=== PATIENT | male | born 1940 | race Caucasian/White ===

== ENCOUNTER 2023-10-29 13:05 | Inpatient (IN) | payer MEDICARE ==
[~2023-10-29] VITALS: Ht 175.3 cm; Wt 61.7 kg
[2023-10-29] MEDS ORDERED: ONDANSETRON HCL/PF 4 MG/2 ML VIAL ONE (13:27)
[2023-10-29 13:39] LABS: BASOPHILS % (AUTO) 0.3 % (0.0-2.0); EOSINOPHILS # (AUTO) 0.2 K/uL (0.0-0.7); EOSINOPHILS % (AUTO) 1.7 % (0.0-6.0); HEMATOCRIT 41 % (39-51); HEMOGLOBIN 13.6 g/dL (13.5-17.5); LYMPHOCYTES % (AUTO) 8.2 % (20.0-44.0); MEAN CORPUSCULAR HEMOGLOBIN 30 PG (26.0-33.0); MEAN CORPUSCULAR HGB CONC 33 g/dl (31.0-36.0); MEAN CORPUSCULAR VOLUME 90 fL (80-96); MONOCYTES # (AUTO) 0.5 K/uL (0.1-1.30); MONOCYTES % (AUTO) 4.2 % (2.0-12.0); NEUTROPHILS # (AUTO) 10.3 K/uL (1.8-8.9); NEUTROPHILS % (AUTO) 85.6 % (43.0-81.0); PLATELET COUNT (AUTO) 213 K/uL (150-450); RED BLOOD CELL COUNT(AUTO) 4.53 MIL/uL (4.5-6.0); RED CELL DISTRIBUTION WIDTH 14.7 % (11.5-15.0)
[2023-10-29] MEDS: IV NS 0.9% 1,000 ML BAG IV ONE (13:42)
[2023-10-29] MEDS: ONDANSETRON HCL/PF 4 MG/2 ML VIAL IVP ONE (13:43)
[2023-10-29] MEDS ORDERED: ASCO-340 PO (13:44)
[2023-10-29] MEDS ORDERED: MAGN400O6 PO (13:44)
[2023-10-29] MEDS ORDERED: MELA3TAB41 PO (13:44)
[2023-10-29] MEDS ORDERED: SODIUM CHLORIDE IV (13:44)
[2023-10-29] MEDS ORDERED: CALC-15 PO (13:44)
[2023-10-29] MEDS ORDERED: FERR325T28 PO (13:44)
[2023-10-29] MEDS ORDERED: CHOL200059 PO (13:44)
[2023-10-29] MEDS ORDERED: NETA2.5D3 EACHEYE (13:44)
[2023-10-29] MEDS ORDERED: TIMO5DRO35 EACHEYE (13:44)
[2023-10-29] MEDS ORDERED: DORZ10DR10 EACHEYE (13:44)
[2023-10-29] MEDS ORDERED: ACET-2605 PO (13:44)
[2023-10-29] MEDS ORDERED: PILO15DR7 EACHEYE (13:44)
[2023-10-29] MEDS ORDERED: ALLA266C2 TP (13:44)
[2023-10-29] MEDS ORDERED: ACET-868 PO (13:44)
[2023-10-29] MEDS ORDERED: NA P133E RC (13:44)
[2023-10-29] MEDS ORDERED: PANT40TA2 PO (13:44)
[2023-10-29] MEDS ORDERED: ASPI-1169 PO (13:44)
[2023-10-29] MEDS ORDERED: SULF1TAB48 PO (13:44)
[2023-10-29] MEDS ORDERED: BISA10SU11 RC (13:44)
[2023-10-29] MEDS ORDERED: BRIM5DRO11 EACHEYE (13:44)
[2023-10-29] MEDS ORDERED: CLOP75TA15 PO (13:44)
[2023-10-29] MEDS ORDERED: HYDR28.32 TP (13:44)
[2023-10-29] MEDS ORDERED: MULT-213 PO (13:44)
[2023-10-29 13:50] LABS: CALCIUM, SERUM 8.5 mg/dL (8.5-10.1); CARBON DIOXIDE 26 mmol/L (21-32); CHLORIDE 98 mmol/L (98-107); CREATININE 0.7 mg/dL (0.6-1.3); GLUCOSE 97 mg/dL (74-106); SODIUM SERUM 130 mmol/L (136-145); UREA NITROGEN, BLOOD 15 mg/dL (7-18)
[2023-10-29 13:56] LABS: ALANINE AMINOTRANSFERASE 31 U/L (12-78); ALBUMIN 3.2 g/dL (3.4-5.0); ALKALINE PHOSPHATASE 91 U/L (46-116); ASPARTATE AMINOTRANSFERASE 35 U/L (15-37); BILIRUBIN,DIRECT 0.2 mg/dL (0.0-0.2); BILIRUBIN,TOTAL 0.7 mg/dL (0.2-1.0); LIPASE 46 U/L (16-77)
[2023-10-29] MEDS ORDERED: IOHEXOL-300 100 ML VIAL IV ONE (14:34)
[2023-10-29] MEDS ORDERED: IV NS 0.9% 250 ML IV ONE (14:35)
[2023-10-29] MEDS ORDERED: CT SWABBABLE VALVE TRANS SET 1 EA INFUS.SET MC ONE (14:35)
[2023-10-29] MEDS: CEFEPIME 1 GM in IV D5W 50 ML IV ONE (15:15)
[2023-10-29] MEDS: VANCOMYCIN 1 GM in IV D5W 250 ML IV ONE (15:45)
[2023-10-29] MEDS ORDERED: ZOLPIDEM TARTRATE 5 MG TABLET PO PRN (16:00)
[2023-10-29] MEDS ORDERED: MAG HYDROX/AL HYDROX/SIMETH 30 ML UDC PO PRN (16:00)
[2023-10-29] MEDS ORDERED: HYDROCODONE/APAP 5/325MG TABLET PO PRN (16:00)
[2023-10-29] MEDS ORDERED: ACETAMINOPHEN 325 MG TABLET PO PRN (16:00)
[2023-10-29] MEDS ORDERED: Z GUARD REMEDY 4 OZ OINT TP PRN (16:00)
[2023-10-29] MEDS: PIPERACILLIN /TAZOBACTAM 3.375 G in IV D5W 100 ML IV SCH (17:00)
[2023-10-29 17:32] LABS: APPEARANCE,URINE Clear (CLEAR); BILIRUBIN,URINE Negative (NEGATIVE); BLOOD, URINE Large Ery/uL (NEGATIVE); COLOR,URINE LIGHT YELLOW (YELLOW); KETONES,URINE Negative (NEGATIVE); LEUKOCYTE ESTERASE ,URINE Moderate (NEGATIVE); NITRITE, URINE Negative (NEGATIVE); PROTEIN,URINE Negative (NEGATIVE); UGLUCOSE Negative (NEGATIVE); UROBILINOGEN,URINE 0.2 EU/dL (0.2)
[2023-10-29 17:49] LABS: ADD URINE CULTURE YES; BACTERIA,URINE Few /HPF (None Seen); SQUAMOUS EPITHELIAL CELL,UR Few /HPF (None Seen); WBC,URINE 51-80 /HPF (0-3)
[2023-10-29 22:45] VITALS: BP 101/65; TEMP 99; O2SAT 96
[2023-10-30] MEDS ORDERED: PIPERACI/TAZO 3.375GM/D5W 50ML PB IV ONE (00:02)
[2023-10-30] MEDS: IV 1/2NS 1000 ML 1,000 ML IV PRN (00:55)
[2023-10-30] MEDS: ENOXAPARIN SODIUM 40 MG/0.4 ML DISP.SYRIN SQ SCH (00:59)
[2023-10-30 04:00] VITALS: BP 105/69; TEMP 97.7; O2SAT 95
[2023-10-30 07:03] LABS: BASOPHILS % (AUTO) 0.2 % (0.0-2.0); EOSINOPHILS % (AUTO) 0.2 % (0.0-6.0); HEMATOCRIT 40 % (39-51); HEMOGLOBIN 13.2 g/dL (13.5-17.5); LYMPHOCYTES # (AUTO) 2.1 K/uL (0.8-4.8); LYMPHOCYTES % (AUTO) 11.1 % (20.0-44.0); MEAN CORPUSCULAR HEMOGLOBIN 31 PG (26.0-33.0); MEAN CORPUSCULAR HGB CONC 33 g/dl (31.0-36.0); MEAN CORPUSCULAR VOLUME 92 fL (80-96); MONOCYTES # (AUTO) 0.8 K/uL (0.1-1.30); NEUTROPHILS # (AUTO) 15.9 K/uL (1.8-8.9); NEUTROPHILS % (AUTO) 84.5 % (43.0-81.0); PLATELET COUNT (AUTO) 173 K/uL (150-450); RED BLOOD CELL COUNT(AUTO) 4.32 MIL/uL (4.5-6.0); WHITE BLOOD COUNT (AUTO) 18.9 K/uL (4.3-11.0)
[2023-10-30 07:09] LABS: CREATININE 0.7 mg/dL (0.6-1.3); MAGNESIUM 1.8 mg/dL (1.8-2.4); PHOSPHORUS 2.7 mg/dL (2.5-4.9); POTASSIUM 3.8 mmol/L (3.5-5.1)
[2023-10-30] MEDS: PANTOPRAZOLE 40 MG TABLET.DR PO SCH (07:44)
[2023-10-30] MEDS: ONDANSETRON HCL/PF 4 MG/2 ML VIAL IVP PRN (07:44)
[2023-10-30 08:20] VITALS: BP 95/61; TEMP 98.6; O2SAT 97
[2023-10-30] MEDS: CLOTRIMAZOLE/BETAMETASONE DIPROPIONATE 15 GM TUBE TP SCH (09:51)
[2023-10-30] MEDS: GUAIFENESIN LA 600 MG TABLET.SA PO SCH (09:51)
[2023-10-30] MEDS: methylPREDNISolone SOD SUCC 125 MG/2ML VIAL IV SCH (13:20)
[2023-10-30] MEDS: IV D5 LR 1,000 ML IV PRN (13:21)
[2023-10-30 15:47] VITALS: BP 95/66; TEMP 97.7; O2SAT 94
[2023-10-30] MEDS ORDERED: ENOXAPARIN SODIUM 80 MG/0.8 ML DISP.SYRIN SQ SCH ×3 (17:30→17:32)
[2023-10-30] MEDS ORDERED: ENOXAPARIN SODIUM 60 MG/0.6 ML DISP.SYRIN SQ SCH (17:33)
[2023-10-30] MEDS: ENOXAPARIN SODIUM 60 MG/0.6 ML DISP.SYRIN SQ ONE (18:24)
[2023-10-30 20:00] VITALS: BP 96/62; TEMP 97.3; O2SAT 95
[2023-10-31] VITALS (7 sets, daily range): BP systolic 93–140; BP diastolic 54–76; TEMP 97.3–97.9; O2SAT 93–100
[2023-10-31 06:57] LABS: HEMATOCRIT 35 % (39-51); HEMOGLOBIN 12.1 g/dL (13.5-17.5); LYMPHOCYTES # (AUTO) 1.2 K/uL (0.8-4.8); LYMPHOCYTES % (AUTO) 11.9 % (20.0-44.0); MEAN CORPUSCULAR HEMOGLOBIN 31 PG (26.0-33.0); MEAN CORPUSCULAR HGB CONC 35 g/dl (31.0-36.0); MEAN CORPUSCULAR VOLUME 90 fL (80-96); MONOCYTES # (AUTO) 0.3 K/uL (0.1-1.30); MONOCYTES % (AUTO) 2.6 % (2.0-12.0); NEUTROPHILS # (AUTO) 8.5 K/uL (1.8-8.9); NEUTROPHILS % (AUTO) 85.5 % (43.0-81.0); PLATELET COUNT (AUTO) 150 K/uL (150-450); RED BLOOD CELL COUNT(AUTO) 3.88 MIL/uL (4.5-6.0); RED CELL DISTRIBUTION WIDTH 14.7 % (11.5-15.0); WHITE BLOOD COUNT (AUTO) 9.9 K/uL (4.3-11.0)
[2023-10-31 07:11] LABS: ALBUMIN 2.7 g/dL (3.4-5.0); BILIRUBIN,TOTAL 0.6 mg/dL (0.2-1.0); CALCIUM, SERUM 8.8 mg/dL (8.5-10.1); CREATININE 0.7 mg/dL (0.6-1.3); MAGNESIUM 1.8 mg/dL (1.8-2.4); PHOSPHORUS 2.5 mg/dL (2.5-4.9); POTASSIUM 3.7 mmol/L (3.5-5.1); TOTAL PROTEIN, SERUM 6.6 g/dL (6.4-8.2)
[2023-10-31 07:17] LABS: THYROID STIMULATING HORMONE 0.623 uIU/mL (0.358-3.74); URIC ACID 3.5 mg/dL (2.6-7.2)
[2023-10-31] MEDS: ENOXAPARIN SODIUM 60 MG/0.6 ML DISP.SYRIN SQ SCH (09:00)
[2023-10-31] MEDS: METOPROLOL TARTRATE 25 MG TABLET PO SCH (20:03)
[2023-10-31] MEDS: MINERAL OIL/PETROL OINT 396 GM JAR TP SCH (20:15)
[2023-11-01] VITALS (7 sets, daily range): BP systolic 102–117; BP diastolic 57–73; TEMP 97.3–97.9; O2SAT 95–97
[2023-11-01 06:44] LABS: BASOPHILS # (AUTO) 0.1 K/uL (0.0-0.2); BASOPHILS % (AUTO) 0.7 % (0.0-2.0); EOSINOPHILS % (AUTO) 0.4 % (0.0-6.0); HEMATOCRIT 35 % (39-51); HEMOGLOBIN 11.8 g/dL (13.5-17.5); LYMPHOCYTES # (AUTO) 0.6 K/uL (0.8-4.8); LYMPHOCYTES % (AUTO) 6.6 % (20.0-44.0); MEAN CORPUSCULAR HEMOGLOBIN 31 PG (26.0-33.0); MEAN CORPUSCULAR HGB CONC 34 g/dl (31.0-36.0); MEAN CORPUSCULAR VOLUME 91 fL (80-96); MONOCYTES # (AUTO) 0.3 K/uL (0.1-1.30); NEUTROPHILS # (AUTO) 8.5 K/uL (1.8-8.9); NEUTROPHILS % (AUTO) 89.3 % (43.0-81.0); PLATELET COUNT (AUTO) 183 K/uL (150-450); RED BLOOD CELL COUNT(AUTO) 3.88 MIL/uL (4.5-6.0); RED CELL DISTRIBUTION WIDTH 14.2 % (11.5-15.0); WHITE BLOOD COUNT (AUTO) 9.5 K/uL (4.3-11.0)
[2023-11-01 07:19] LABS: ALBUMIN 2.7 g/dL (3.4-5.0); BILIRUBIN,TOTAL 0.5 mg/dL (0.2-1.0); CALCIUM, SERUM 8.8 mg/dL (8.5-10.1); CREATININE 0.6 mg/dL (0.6-1.3); PHOSPHORUS 2.4 mg/dL (2.5-4.9); POTASSIUM 3.5 mmol/L (3.5-5.1); TOTAL PROTEIN, SERUM 6.3 g/dL (6.4-8.2)
[2023-11-01 09:37] LABS: BAND % (MANUAL) 3 % (0.0-5.0); LYMPHOCYTES % (MANUAL) 5 % (16-48); METAMYELOCYTES % 2 % (0-0); MONOCYTES % (MANUAL) 2 % (0-11.0); MYELOCYTES % 1 % (0-0); NEUTROPHILS % (MANUAL) 87 (42-76); PLATELET ESTIMATE ADEQUATE
[2023-11-01] MEDS: Sodium Phosphate 15 MMOL in IV NS 0.9% 245 ML IV SCH (11:52)
[2023-11-01] MEDS ORDERED: IOHEXOL-300 100 ML VIAL IV ONE (13:54)
[2023-11-01] MEDS ORDERED: CT SWABBABLE VALVE TRANS SET 1 EA INFUS.SET MC ONE (13:54)
[2023-11-01] MEDS ORDERED: IV NS 0.9% 250 ML IV ONE (13:54)
[2023-11-01] MEDS ORDERED: GADOTERATE MEGLUMINE 10 MMOL/20 ML VIAL IV ONE (15:28)
[2023-11-01] MEDS: DORZOLAMIDE OPTH 2% 10 ML BOTTLE EACHEYE SCH (16:38)
[2023-11-01] MEDS: BRIMONIDINE TARTRATE OPHT SOLN 5 ML BOTTLE EACHEYE SCH (16:45)
[2023-11-01] MEDS: PILOCARPINE 2% OPTH DROP 15 ML BOTTLE EACHEYE SCH (16:54)
[2023-11-01] MEDS: TIMOLOL 0.5% SOLN OPHTH 5 ML BOTTLE EACHEYE SCH (16:55)
[2023-11-01 18:20] LABS: THYROID STIMULATING HORMONE 1.024 uIU/mL (0.358-3.74)
[2023-11-01 19:18] LABS: FREE PSA 0.12 ng/mL (0.00-45); PROSTATE SPECIFIC ANTIGEN SCR 1.57 ng/mL (0.00-4.00)
[2023-11-01] MEDS ORDERED: Medication Not On Formulary EA (Netarsudil Mesylat/Latanoprost (Rocklatan 0.02%-0.005% E EACHEYE SCH (22:00)
[2023-11-01] MEDS ORDERED: GUAIFENESIN/D-METHORPHAN HB 5 ML UDC PO PRN (23:30)
[2023-11-02] VITALS (7 sets, daily range): BP systolic 118–133; BP diastolic 74–99; TEMP 97.7–98.4; O2SAT 94–96
[2023-11-02 07:12] LABS: HEMATOCRIT 37 % (39-51); HEMOGLOBIN 12.6 g/dL (13.5-17.5); LYMPHOCYTES # (AUTO) 1.1 K/uL (0.8-4.8); LYMPHOCYTES % (AUTO) 8.2 % (20.0-44.0); MEAN CORPUSCULAR HEMOGLOBIN 31 PG (26.0-33.0); MEAN CORPUSCULAR HGB CONC 34 g/dl (31.0-36.0); MEAN CORPUSCULAR VOLUME 90 fL (80-96); MONOCYTES # (AUTO) 0.6 K/uL (0.1-1.30); MONOCYTES % (AUTO) 4.3 % (2.0-12.0); NEUTROPHILS # (AUTO) 12.3 K/uL (1.8-8.9); NEUTROPHILS % (AUTO) 87.5 % (43.0-81.0); PLATELET COUNT (AUTO) 230 K/uL (150-450); RED CELL DISTRIBUTION WIDTH 14.2 % (11.5-15.0); WHITE BLOOD COUNT (AUTO) 14.1 K/uL (4.3-11.0)
[2023-11-02 07:43] LABS: ALANINE AMINOTRANSFERASE 25 U/L (12-78); ALBUMIN 2.7 g/dL (3.4-5.0); ALKALINE PHOSPHATASE 74 U/L (46-116); ASPARTATE AMINOTRANSFERASE 24 U/L (15-37); BILIRUBIN,TOTAL 0.5 mg/dL (0.2-1.0); CALCIUM, SERUM 8.8 mg/dL (8.5-10.1); CARBON DIOXIDE 30 mmol/L (21-32); CHLORIDE 101 mmol/L (98-107); CREATININE 0.7 mg/dL (0.6-1.3); GLUCOSE 138 mg/dL (74-106); MAGNESIUM 1.9 mg/dL (1.8-2.4); PHOSPHORUS 2.2 mg/dL (2.5-4.9); POTASSIUM 2.9 mmol/L (3.5-5.1); SODIUM SERUM 138 mmol/L (136-145); TOTAL PROTEIN, SERUM 6.7 g/dL (6.4-8.2); UREA NITROGEN, BLOOD 17 mg/dL (7-18)
[2023-11-02 08:08] LABS: IMMUNOGLOBULIN A, SERUM 492 mg/dL (61-437); IMMUNOGLOBULIN G, SERUM 836 mg/dL (603-1613); IMMUNOGLOBULIN M, SERUM 29 mg/dL (15-143)
[2023-11-02] MEDS ORDERED: OLANZAPINE 10 MG VIAL IM ONE (09:31)
[2023-11-02 10:07] LABS: FOLIC ACID 7.7 ng/mL (>3.0)
[2023-11-02] MEDS: K PHOS NEUTRAL 250 MG TABLET PO ONE (10:20)
[2023-11-02] MEDS: POTASSIUM CHLORIDE 20 MEQ TAB.PRT.SR PO ONE (10:21)
[2023-11-02] MEDS: MAGNESIUM HYDROXIDE 30 ML UDC PO PRN (21:58)
[2023-11-03] VITALS: BP 131/99; TEMP 98.3; O2SAT 97
[2023-11-03 04:00] VITALS: BP 143/87; TEMP 98.2; O2SAT 95
[2023-11-03 07:00] VITALS: BP 135/78; TEMP 97.7; O2SAT 92
[2023-11-03 07:12] LABS: HEMATOCRIT 41 % (39-51); HEMOGLOBIN 13.8 g/dL (13.5-17.5); LYMPHOCYTES # (AUTO) 1.3 K/uL (0.8-4.8); LYMPHOCYTES % (AUTO) 15.4 % (20.0-44.0); MEAN CORPUSCULAR HEMOGLOBIN 31 PG (26.0-33.0); MEAN CORPUSCULAR HGB CONC 34 g/dl (31.0-36.0); MEAN CORPUSCULAR VOLUME 92 fL (80-96); MONOCYTES # (AUTO) 0.8 K/uL (0.1-1.30); MONOCYTES % (AUTO) 9.7 % (2.0-12.0); NEUTROPHILS # (AUTO) 6.4 K/uL (1.8-8.9); NEUTROPHILS % (AUTO) 74.9 % (43.0-81.0); PLATELET COUNT (AUTO) 237 K/uL (150-450); RED BLOOD CELL COUNT(AUTO) 4.43 MIL/uL (4.5-6.0); WHITE BLOOD COUNT (AUTO) 8.6 K/uL (4.3-11.0)
[2023-11-03 07:31] LABS: CALCIUM, SERUM 8.8 mg/dL (8.5-10.1); CARBON DIOXIDE 28 mmol/L (21-32); CREATININE 0.7 mg/dL (0.6-1.3); GLUCOSE 145 mg/dL (74-106); MAGNESIUM 1.9 mg/dL (1.8-2.4); PHOSPHORUS 2.3 mg/dL (2.5-4.9); UREA NITROGEN, BLOOD 14 mg/dL (7-18)
[2023-11-03 08:06] LABS: CHLORIDE 100 mmol/L (98-107); SODIUM SERUM 138 mmol/L (136-145)
[2023-11-03] MEDS: SPIRONOLACTONE 25 MG TABLET PO SCH (08:27)
[2023-11-03] MEDS: POTASSIUM CHLORIDE 20 MEQ TAB.PRT.SR PO SCH (10:24)
[2023-11-03 11:10] LABS: FREE KAPPA LT CHAINS SERUM 19.7 mg/L (3.3-19.4); FREE LAMBDA LT CHAIN SERUM 18.8 mg/L (5.7-26.3); KAPPA/LAMBDA RATIO SERUM 1.05 (0.26-1.65)
[2023-11-03] MEDS: K PHOS NEUTRAL 250 MG TABLET PO ONE (15:38)
[2023-11-03 16:00] VITALS: BP 111/70; TEMP 97.3; O2SAT 98
[2023-11-03 20:00] VITALS: BP 105/70; TEMP 97; O2SAT 97
[2023-11-04] VITALS: BP 130/88; TEMP 97.9; O2SAT 96
[2023-11-04 02:10] LABS: AFP, TUMOR MARKER <1.8 ng/mL (0.0-6.4); CARBOHYDRATE AG 19-9 21 U/mL (0-35)
[2023-11-04 04:00] VITALS: BP 137/79; TEMP 98; O2SAT 98
[2023-11-04 06:09] LABS: *SPE A/G RATIO 0.9 (0.7-1.7); *SPE ALBUMIN 2.8 g/dL (2.9-4.4); *SPE ALPHA-1-GLOBULIN 0.4 g/dL (0.0-0.4); *SPE ALPHA-2-GLOBULIN 0.9 g/dL (0.4-1.0); *SPE BETA GLOBULIN 1.1 g/dL (0.7-1.3); *SPE GLOBULIN, TOTAL 3.2 g/dL (2.2-3.9); *SPE M-SPIKE Not Observed g/dL (Not Observed)
[2023-11-04 07:33] LABS: CALCIUM, SERUM 8.5 mg/dL (8.5-10.1); CARBON DIOXIDE 31 mmol/L (21-32); CHLORIDE 99 mmol/L (98-107); CREATININE 0.5 mg/dL (0.6-1.3); GLUCOSE 158 mg/dL (74-106); POTASSIUM 3.2 mmol/L (3.5-5.1); SODIUM SERUM 136 mmol/L (136-145); UREA NITROGEN, BLOOD 16 mg/dL (7-18)
[2023-11-04 08:00] VITALS: BP 139/73; TEMP 97.9; O2SAT 93
[2023-11-04] MEDS: ENSURE ENLIVE CHOC 237 ML CAN PO SCH (08:14)
[2023-11-04] MEDS: POTASSIUM CL. PREMIX PERIPHER. 50 ML IV SCH (08:54)
[2023-11-04] MEDS: POTASSIUM CHLORIDE 20 MEQ TAB.PRT.SR PO ONE (08:56)
[2023-11-04] MEDS ORDERED: SPIR25TA6 PO (11:39)
[2023-11-04] MEDS ORDERED: METO25TA20 PO (11:39)
[2023-11-04] MEDS ORDERED: LEVO500T90 PO (11:39)
[2023-11-04] MEDS ORDERED: LOSA25TA27 PO (11:39)
[2023-11-04] MEDS: LOSARTAN POTASSIUM 25 MG TABLET PO SCH (12:31)
[2023-11-04] MEDS: LACTULOSE 10 G/15 ML UDC (PYXIS) PO ONE (14:58)
[2023-11-04 16:11] VITALS: BP 86/50; TEMP 97.9; O2SAT 96
[2023-11-04 16:45] VITALS: BP 86/50
[2023-11-04] MEDS: MIDODRINE HCL (5MG) 5 MG TABLET PO ONE (16:45)
[2023-11-05] MEDS ORDERED: predniSONE 20 MG TABLET PO SCH (09:00)
== END 2023-11-04 20:20 | DRG 193 ==
LOC: ER 13:07 → TELE 21:48
PROVIDERS: ATTEND Nurse Practitioner Acute Care
DX: J15.9 Unspecified bacterial pneumonia (principal); I21.4 Non-ST elevation (NSTEMI) myocardial infarction; J96.01 Acute respiratory failure with hypoxia; E87.1 Hypo-osmolality and hyponatremia; I50.22 Chronic systolic (congestive) heart failure; N39.0 Urinary tract infection, site not specified; J98.11 Atelectasis; I25.10 Atherosclerotic heart disease of native coronary artery without angina pectoris; H40.9 Unspecified glaucoma; D64.9 Anemia, unspecified; Z79.02 Long term (current) use of antithrombotics/antiplatelets; Z79.82 Long term (current) use of aspirin; Z79.899 Other long term (current) drug therapy; Z20.822 Contact with and (suspected) exposure to COVID-19; Z95.1 Presence of aortocoronary bypass graft; I11.0 Hypertensive heart disease with heart failure; I73.9 Peripheral vascular disease, unspecified; L85.3 Xerosis cutis; Y95 Nosocomial condition; Z96.643 Presence of artificial hip joint, bilateral; I35.0 Nonrheumatic aortic (valve) stenosis
CPT/HCPCS: 36415; 71045-TC; 71260-TC; 74183; 80048-TC; 80053-TC; 80076-TC; 81001; 82105; 82378; 82607-TC; 82728-TC; 82784; 83540-TC; 83605-TC; 83615-TC; 83690-TC; 83735-TC; 83880; 83935-TC; 84100-TC; 84153-TC; 84154-TC; 84155; 84165; 84300-TC; 84443-TC; 84484-TC; 84550-TC; 84702-TC; 85025-TC; 86301; 86334; 87040-TC; 87086-TC; 93307-TC; 97110-TC; 97116-TC; 97530-TC; A4223; A9563; A9575; G0378; J0692; J1650; J2405; J2543; J2930; J3370; J3480; J3490; J7030; J7050; J7060; Q9967

== ENCOUNTER 2023-12-29 19:05 | Inpatient (IN) | payer MEDICARE, OTHER ==
[~2023-12-29] VITALS: Ht 172.7 cm; Wt 41.7 kg
[~2023-12-29 19:05] MED LIST: ACET-2605 PO; ACET-868 PO; ALLA266C2 TP; ASCO-340 PO; ASPI-1169 PO; BISA10SU11 RC; BRIM5DRO11 EACHEYE; CALC-15 PO; CHOL200059 PO; DORZ10DR10 EACHEYE; FERR325T28 PO; HYDR28.32 TP; LEVO500T90 PO; MAGN400O6 PO; MELA3TAB41 PO; METO25TA20 PO; MULT-213 PO; NA P133E RC; NETA2.5D3 EACHEYE; PANT40TA2 PO; PILO15DR7 EACHEYE; SODIUM CHLORIDE IV; SPIR25TA6 PO; SULF1TAB48 PO; TIMO5DRO35 EACHEYE
[2023-12-29 21:51] LABS: BASOPHILS % (AUTO) 0.4 % (0.0-2.0); EOSINOPHILS # (AUTO) 0.4 K/uL (0.0-0.7); EOSINOPHILS % (AUTO) 5.6 % (0.0-6.0); HEMATOCRIT 36 % (39-51); HEMOGLOBIN 12.4 g/dL (13.5-17.5); LYMPHOCYTES # (AUTO) 1.6 K/uL (0.8-4.8); LYMPHOCYTES % (AUTO) 20.6 % (20.0-44.0); MEAN CORPUSCULAR HEMOGLOBIN 30 PG (26.0-33.0); MEAN CORPUSCULAR HGB CONC 34 g/dl (31.0-36.0); MEAN CORPUSCULAR VOLUME 89 fL (80-96); MONOCYTES # (AUTO) 0.7 K/uL (0.1-1.30); NEUTROPHILS # (AUTO) 5.1 K/uL (1.8-8.9); NEUTROPHILS % (AUTO) 64.4 % (43.0-81.0); PLATELET COUNT (AUTO) 333 K/uL (150-450); RED BLOOD CELL COUNT(AUTO) 4.08 MIL/uL (4.5-6.0); RED CELL DISTRIBUTION WIDTH 14.9 % (11.5-15.0)
[2023-12-29 21:58] LABS: CALCIUM, SERUM 9.5 mg/dL (8.5-10.1); CARBON DIOXIDE 27 mmol/L (21-32); CHLORIDE 101 mmol/L (98-107); CREATININE 0.8 mg/dL (0.6-1.3); GLUCOSE 108 mg/dL (74-106); POTASSIUM 3.9 mmol/L (3.5-5.1); SODIUM SERUM 134 mmol/L (136-145); UREA NITROGEN, BLOOD 20 mg/dL (7-18)
[2023-12-29] MEDS ORDERED: FINASTERIDE (5 MG) 5 MG TABLET PO SCH (22:30)
[2023-12-29] MEDS: TAMSULOSIN 0.4 MG CAP.SR.24H PO ONE (22:30)
[2023-12-29] MEDS ORDERED: TAMSULOSIN 0.4 MG CAP.SR.24H ONE (22:33)
[2023-12-29] MEDS ORDERED: FINA5TAB11 PO (22:44)
[2023-12-29] MEDS ORDERED: TAMS-12 PO (22:44)
[2023-12-30] MEDS ORDERED: LIDOCAINE 2% JEL UROJET 10 ML MM ONE (01:44)
[2023-12-30] MEDS ORDERED: LIDOCAINE HCL/PF 1% 30 ML SDV ONE (02:00)
[2023-12-30] MEDS: CEFTRIAXONE 1 G in IV D5W 50 ML IV ONE (03:10)
[2023-12-30] MEDS ORDERED: CEFTRIAXONE 1GM BAG (ER ONLY) 50 ML IV ONE (03:13)
[2023-12-30] MEDS ORDERED: ONDANSETRON HCL/PF 4 MG/2 ML VIAL IVP PRN (03:30)
[2023-12-30] MEDS ORDERED: ACETAMINOPHEN 325 MG TABLET PO PRN (03:30)
[2023-12-30] MEDS ORDERED: MAG HYDROX/AL HYDROX/SIMETH 30 ML UDC PO PRN (03:30)
[2023-12-30] MEDS ORDERED: ZOLPIDEM TARTRATE 5 MG TABLET PO PRN (03:30)
[2023-12-30 04:18] LABS: BILIRUBIN,URINE NEGATIVE (NEGATIVE); BLOOD, URINE 3+ Ery/uL (NEGATIVE); COLOR,URINE YELLOW (YELLOW); KETONES,URINE NEGATIVE (NEGATIVE); LEUKOCYTE ESTERASE ,URINE 3+ (NEGATIVE); NITRITE, URINE NEGATIVE (NEGATIVE); PROTEIN,URINE 2+ mg/dl (NEGATIVE); UGLUCOSE NEGATIVE (NEGATIVE); UROBILINOGEN,URINE 0.2 EU/dL (0.2)
[2023-12-30 04:19] LABS: APPEARANCE,URINE TURBID (CLEAR)
[2023-12-30 04:23] LABS: ADD URINE CULTURE YES; BACTERIA,URINE Many /HPF (None Seen); RBC,URINE TOO NUMEROUS TO COUN /HPF (0-2); WBC,URINE TOO NUMEROUS TO COUN /HPF (0-3)
[2023-12-30 04:24] LABS: SQUAMOUS EPITHELIAL CELL,UR None Seen /HPF (None Seen)
[2023-12-30 05:15] VITALS: BP 132/89; TEMP 97.8; O2SAT 99
[2023-12-30] MEDS: IV NS 0.9% 1,000 ML IV SCH (05:23)
[2023-12-30 06:31] LABS: BASOPHILS # (AUTO) 0.1 K/uL (0.0-0.2); BASOPHILS % (AUTO) 0.5 % (0.0-2.0); EOSINOPHILS # (AUTO) 0.3 K/uL (0.0-0.7); EOSINOPHILS % (AUTO) 2.9 % (0.0-6.0); HEMATOCRIT 39 % (39-51); HEMOGLOBIN 13.3 g/dL (13.5-17.5); LYMPHOCYTES # (AUTO) 1.9 K/uL (0.8-4.8); LYMPHOCYTES % (AUTO) 15.6 % (20.0-44.0); MEAN CORPUSCULAR HEMOGLOBIN 31 PG (26.0-33.0); MEAN CORPUSCULAR HGB CONC 34 g/dl (31.0-36.0); MEAN CORPUSCULAR VOLUME 91 fL (80-96); MONOCYTES # (AUTO) 0.7 K/uL (0.1-1.30); MONOCYTES % (AUTO) 5.7 % (2.0-12.0); NEUTROPHILS # (AUTO) 8.9 K/uL (1.8-8.9); NEUTROPHILS % (AUTO) 75.3 % (43.0-81.0); PLATELET COUNT (AUTO) 346 K/uL (150-450); RED BLOOD CELL COUNT(AUTO) 4.32 MIL/uL (4.5-6.0); RED CELL DISTRIBUTION WIDTH 14.9 % (11.5-15.0); WHITE BLOOD COUNT (AUTO) 11.9 K/uL (4.3-11.0)
[2023-12-30 06:59] LABS: ALBUMIN 2.7 g/dL (3.4-5.0); BILIRUBIN,DIRECT 0.2 mg/dL (0.0-0.2); BILIRUBIN,TOTAL 0.5 mg/dL (0.2-1.0); CALCIUM, SERUM 10.1 mg/dL (8.5-10.1); CREATININE 0.8 mg/dL (0.6-1.3); MAGNESIUM 2.1 mg/dL (1.8-2.4); PHOSPHORUS 2.8 mg/dL (2.5-4.9); POTASSIUM 3.6 mmol/L (3.5-5.1); TOTAL PROTEIN, SERUM 6.9 g/dL (6.4-8.2)
[2023-12-30 07:28] LABS: THYROID STIMULATING HORMONE 0.74 uIU/mL (0.358-3.74)
[2023-12-30 08:00] VITALS: BP 107/70; TEMP 97.8; O2SAT 94
[2023-12-30] MEDS ORDERED: LOSA25TA27 PO (08:41)
[2023-12-30] MEDS ORDERED: AMIN30LI66 PO (08:41)
[2023-12-30] MEDS ORDERED: MERO500V23 IV (08:41)
[2023-12-30] MEDS: PANTOPRAZOLE 40 MG TABLET.DR PO SCH (08:43)
[2023-12-30] MEDS: ENOXAPARIN SODIUM 40 MG/0.4 ML DISP.SYRIN SQ SCH (08:44)
[2023-12-30] MEDS: CIPROFLOXACIN IV RTU 400 MG in PREMIX 1 EA IV SCH (09:55)
[2023-12-30 16:00] VITALS: BP 104/54; TEMP 97.6; O2SAT 98
[2023-12-30] MEDS ORDERED: IOHEXOL-300 100 ML VIAL IV ONE (16:17)
[2023-12-30] MEDS ORDERED: IV NS 0.9% 250 ML IV ONE (16:18)
[2023-12-30] MEDS: PIPERACILLIN /TAZOBACTAM 2.25 G in IV D5W 50 ML IV SCH (17:37)
[2023-12-30] MEDS ORDERED: CEFTRIAXONE 1 G in IV D5W 50 ML IV SCH (20:00)
[2023-12-31] VITALS: BP 102/66; TEMP 98.2; O2SAT 99
[2023-12-31 06:55] LABS: BASOPHILS % (AUTO) 0.6 % (0.0-2.0); EOSINOPHILS # (AUTO) 0.4 K/uL (0.0-0.7); EOSINOPHILS % (AUTO) 5.4 % (0.0-6.0); HEMATOCRIT 31 % (39-51); HEMOGLOBIN 10.9 g/dL (13.5-17.5); LYMPHOCYTES # (AUTO) 1.5 K/uL (0.8-4.8); LYMPHOCYTES % (AUTO) 19.6 % (20.0-44.0); MEAN CORPUSCULAR HEMOGLOBIN 32 PG (26.0-33.0); MEAN CORPUSCULAR HGB CONC 35 g/dl (31.0-36.0); MEAN CORPUSCULAR VOLUME 90 fL (80-96); MONOCYTES # (AUTO) 0.6 K/uL (0.1-1.30); MONOCYTES % (AUTO) 7.5 % (2.0-12.0); NEUTROPHILS # (AUTO) 5.1 K/uL (1.8-8.9); NEUTROPHILS % (AUTO) 66.9 % (43.0-81.0); PLATELET COUNT (AUTO) 303 K/uL (150-450); RED BLOOD CELL COUNT(AUTO) 3.45 MIL/uL (4.5-6.0); RED CELL DISTRIBUTION WIDTH 14.5 % (11.5-15.0); WHITE BLOOD COUNT (AUTO) 7.6 K/uL (4.3-11.0)
[2023-12-31 07:11] LABS: C-REACTIVE PROTEIN 5.12 mg/dL (0.0-0.30); CALCIUM, SERUM 8.7 mg/dL (8.5-10.1); CARBON DIOXIDE 23 mmol/L (21-32); CHLORIDE 102 mmol/L (98-107); CREATININE 0.5 mg/dL (0.6-1.3); GLUCOSE 98 mg/dL (74-106); MAGNESIUM 1.6 mg/dL (1.8-2.4); PHOSPHORUS 2.7 mg/dL (2.5-4.9); POTASSIUM 3.4 mmol/L (3.5-5.1); SODIUM SERUM 134 mmol/L (136-145); UREA NITROGEN, BLOOD 13 mg/dL (7-18)
[2023-12-31 07:27] LABS: LACTIC ACID 0.6 mmol/L (0.4-2.0)
[2023-12-31 08:00] VITALS: BP 123/83; TEMP 97.9; O2SAT 98
[2023-12-31] MEDS: MUPIROCIN OINT 2% 22 GM TUBE TP SCH (08:23)
[2023-12-31] MEDS: Z GUARD REMEDY 4 OZ OINT TP PRN (08:23)
[2023-12-31] MEDS: MAGNESIUM OXIDE 400 MG TABLET PO ONE (10:17)
[2023-12-31] MEDS: POTASSIUM CHLORIDE 20 MEQ TAB.PRT.SR PO SCH (10:17)
[2023-12-31 16:00] VITALS: BP 116/71; TEMP 97.6; O2SAT 98
[2023-12-31 20:00] VITALS: BP 103/69; TEMP 97.5; O2SAT 97
[2024-01-01] VITALS (25 sets, daily range): BP systolic 106–142; BP diastolic 68–99; TEMP 98.3–98.6; O2SAT 95–100
[2024-01-01 06:53] LABS: BASOPHILS % (AUTO) 0.6 % (0.0-2.0); EOSINOPHILS # (AUTO) 0.6 K/uL (0.0-0.7); EOSINOPHILS % (AUTO) 8.7 % (0.0-6.0); HEMATOCRIT 32 % (39-51); HEMOGLOBIN 10.9 g/dL (13.5-17.5); LYMPHOCYTES # (AUTO) 1.7 K/uL (0.8-4.8); LYMPHOCYTES % (AUTO) 24.6 % (20.0-44.0); MEAN CORPUSCULAR HEMOGLOBIN 31 PG (26.0-33.0); MEAN CORPUSCULAR HGB CONC 34 g/dl (31.0-36.0); MEAN CORPUSCULAR VOLUME 91 fL (80-96); MONOCYTES # (AUTO) 0.5 K/uL (0.1-1.30); MONOCYTES % (AUTO) 7.5 % (2.0-12.0); NEUTROPHILS # (AUTO) 4.1 K/uL (1.8-8.9); NEUTROPHILS % (AUTO) 58.6 % (43.0-81.0); PLATELET COUNT (AUTO) 313 K/uL (150-450); RED BLOOD CELL COUNT(AUTO) 3.48 MIL/uL (4.5-6.0); RED CELL DISTRIBUTION WIDTH 14.8 % (11.5-15.0); WHITE BLOOD COUNT (AUTO) 6.9 K/uL (4.3-11.0)
[2024-01-01 07:01] LABS: INR 1.35 (0.91-1.10); PARTIAL THROMBOPLASTIN TIME 40.2 SEC (24.3-34.3)
[2024-01-01 08:58] LABS: CALCIUM, SERUM 9.2 mg/dL (8.5-10.1); CARBON DIOXIDE 23 mmol/L (21-32); CHLORIDE 105 mmol/L (98-107); CREATININE 0.5 mg/dL (0.6-1.3); GLUCOSE 94 mg/dL (74-106); POTASSIUM 3.6 mmol/L (3.5-5.1); SODIUM SERUM 136 mmol/L (136-145); UREA NITROGEN, BLOOD 10 mg/dL (7-18)
[2024-01-01] MEDS ORDERED: LIDOCAINE HCL/MPF 1% 30 ML VIAL IJ ONE (10:16)
[2024-01-01] MEDS ORDERED: IV NS 0.9% 500 ML IV ONE (10:16)
[2024-01-01] MEDS ORDERED: IV SET PRIMARY PUMP SET 1 EA INFUS.SET MC ONE (10:16)
[2024-01-01] MEDS ORDERED: IODIXANOL 150 ML IV ONE (10:17)
[2024-01-01] MEDS ORDERED: FENTANYL PF 100MCG/2ML AMPUL ONE (11:54)
[2024-01-01] MEDS ORDERED: MIDAZOLAM HCL 2 MG/2ML VIAL ONE (11:55)
[2024-01-01] MEDS ORDERED: HEPARIN SODIUM, PORCINE 5000 UNITS/1 ML VIAL ONE (12:15)
[2024-01-01] MEDS ORDERED: IODIXANOL 320MG/ML 100 ML IV ONE (12:41)
[2024-01-01] MEDS: SORBITOL SOLUTION 70% 30 ML SOLUTION PO SCH (14:04)
[2024-01-01] MEDS: LACTULOSE 10 G/15 ML UDC (PYXIS) PO ONE ×2 (14:20→14:33)
[2024-01-02] VITALS: BP 106/63; TEMP 97.9; O2SAT 98
[2024-01-02 04:00] VITALS: BP 99/52; TEMP 97.7; O2SAT 99
[2024-01-02 06:39] LABS: BASOPHILS % (AUTO) 0.6 % (0.0-2.0); EOSINOPHILS # (AUTO) 0.6 K/uL (0.0-0.7); EOSINOPHILS % (AUTO) 7.7 % (0.0-6.0); HEMATOCRIT 32 % (39-51); LYMPHOCYTES # (AUTO) 1.4 K/uL (0.8-4.8); MEAN CORPUSCULAR HEMOGLOBIN 31 PG (26.0-33.0); MEAN CORPUSCULAR HGB CONC 35 g/dl (31.0-36.0); MEAN CORPUSCULAR VOLUME 90 fL (80-96); MONOCYTES # (AUTO) 0.7 K/uL (0.1-1.30); MONOCYTES % (AUTO) 9.4 % (2.0-12.0); NEUTROPHILS # (AUTO) 4.5 K/uL (1.8-8.9); NEUTROPHILS % (AUTO) 62.3 % (43.0-81.0); PLATELET COUNT (AUTO) 314 K/uL (150-450); RED CELL DISTRIBUTION WIDTH 14.6 % (11.5-15.0); WHITE BLOOD COUNT (AUTO) 7.2 K/uL (4.3-11.0)
[2024-01-02 06:59] LABS: CALCIUM, SERUM 8.3 mg/dL (8.5-10.1); CARBON DIOXIDE 24 mmol/L (21-32); CHLORIDE 106 mmol/L (98-107); CREATININE 0.4 mg/dL (0.6-1.3); GLUCOSE 92 mg/dL (74-106); MAGNESIUM 1.6 mg/dL (1.8-2.4); PHOSPHORUS 2.3 mg/dL (2.5-4.9); POTASSIUM 3.1 mmol/L (3.5-5.1); SODIUM SERUM 140 mmol/L (136-145); UREA NITROGEN, BLOOD 7 mg/dL (7-18)
[2024-01-02 08:00] VITALS: BP_SYST 116; BP_SYST 133; BP_DIAS 71; BP_DIAS 85; TEMP 97.8; O2SAT 99
[2024-01-02] MEDS: POTASSIUM CHLORIDE 20 MEQ POWDER PACKET PO ONE (08:45)
[2024-01-02] MEDS: MAGNESIUM OXIDE 400 MG TABLET PO ONE (08:53)
[2024-01-02 12:00] VITALS: BP 130/78; TEMP 97.7; O2SAT 99
[2024-01-02] MEDS: PIPERACILLIN /TAZOBACTAM 3.375 G in IV D5W 100 ML IV SCH (12:05)
[2024-01-02 14:51] LABS: FREE PSA 0.15 ng/mL (0.00-45); PROSTATE SPECIFIC ANTIGEN SCR 1.58 ng/mL (0.00-4.00)
[2024-01-02] MEDS ORDERED: BISACODYL SUPP (10 MG) 10 MG/SUPP.RECT SUPP.RECT RC PRN (15:30)
[2024-01-02] MEDS: NEUTRA PHOS 1 POWD.PACKET PO ONE (15:37)
[2024-01-02] MEDS: MAGNESIUM HYDROXIDE 30 ML UDC PO PRN (15:38)
[2024-01-02 16:00] VITALS: BP 112/90; TEMP 98; O2SAT 98
[2024-01-02] MEDS: IV NS 0.9% 1,000 ML IV PRN (18:45)
[2024-01-02 20:00] VITALS: BP 96/69; TEMP 97.5; O2SAT 99
[2024-01-03] VITALS: BP 116/88; TEMP 98.6; O2SAT 99
[2024-01-03 04:00] VITALS: BP 122/55; TEMP 98.7; O2SAT 94
[2024-01-03 07:41] LABS: BASOPHILS # (AUTO) 0.1 K/uL (0.0-0.2); BASOPHILS % (AUTO) 0.7 % (0.0-2.0); EOSINOPHILS # (AUTO) 0.9 K/uL (0.0-0.7); EOSINOPHILS % (AUTO) 9.7 % (0.0-6.0); HEMATOCRIT 32 % (39-51); LYMPHOCYTES # (AUTO) 2.9 K/uL (0.8-4.8); LYMPHOCYTES % (AUTO) 30.2 % (20.0-44.0); MEAN CORPUSCULAR HEMOGLOBIN 31 PG (26.0-33.0); MEAN CORPUSCULAR HGB CONC 35 g/dl (31.0-36.0); MEAN CORPUSCULAR VOLUME 90 fL (80-96); MONOCYTES # (AUTO) 0.6 K/uL (0.1-1.30); MONOCYTES % (AUTO) 6.6 % (2.0-12.0); NEUTROPHILS % (AUTO) 52.8 % (43.0-81.0); PLATELET COUNT (AUTO) 326 K/uL (150-450); RED BLOOD CELL COUNT(AUTO) 3.56 MIL/uL (4.5-6.0); RED CELL DISTRIBUTION WIDTH 14.6 % (11.5-15.0); WHITE BLOOD COUNT (AUTO) 9.5 K/uL (4.3-11.0)
[2024-01-03 08:00] VITALS: BP 127/72; TEMP 97.7; O2SAT 94
[2024-01-03 08:24] LABS: CALCIUM, SERUM 8.2 mg/dL (8.5-10.1); CARBON DIOXIDE 24 mmol/L (21-32); CHLORIDE 105 mmol/L (98-107); CREATININE 0.4 mg/dL (0.6-1.3); GLUCOSE 89 mg/dL (74-106); MAGNESIUM 1.7 mg/dL (1.8-2.4); PHOSPHORUS 2.3 mg/dL (2.5-4.9); POTASSIUM 3.9 mmol/L (3.5-5.1); SODIUM SERUM 138 mmol/L (136-145); UREA NITROGEN, BLOOD 6 mg/dL (7-18)
[2024-01-03] MEDS: MAGNESIUM OXIDE 400 MG TABLET PO ONE (10:50)
[2024-01-03 12:00] VITALS: BP 101/68; TEMP 97.5; O2SAT 94
[2024-01-03] MEDS: K PHOS NEUTRAL 250 MG TABLET PO ONE (15:18)
[2024-01-03 16:00] VITALS: BP 112/62; TEMP 97.7; O2SAT 94
[2024-01-03 20:00] VITALS: BP 118/82; TEMP 98.4; O2SAT 100
[2024-01-04] VITALS: BP 132/65; TEMP 97.7; O2SAT 97
[2024-01-04 04:03] VITALS: BP 128/87; TEMP 98.1; O2SAT 98
[2024-01-04 08:00] VITALS: BP 124/82; TEMP 97.9; O2SAT 98
[2024-01-04 08:08] LABS: MAGNESIUM 2.1 mg/dL (1.8-2.4); PHOSPHORUS 3.1 mg/dL (2.5-4.9)
[2024-01-04 12:00] VITALS: BP 100/88; TEMP 97.7; O2SAT 98
[2024-01-04] MEDS: PROSOURCE / PROSTAT (PYXIS) 30 ML UDC PO SCH (12:21)
[2024-01-04 16:00] VITALS: BP 86/57; TEMP 98.6; O2SAT 96
[2024-01-04] MEDS: ENSURE ENLIVE 237 ML LIQUID (VANILLA) PO SCH (18:02)
[2024-01-04] MEDS: ARGININE/GLUTAMINE/CALCIUM BMB 1 EACH POWD.PACK PO SCH (18:03)
[2024-01-04 20:00] VITALS: BP 105/53; TEMP 99; O2SAT 95
[2024-01-05] VITALS: BP 122/67; TEMP 97.9; O2SAT 98
[2024-01-05 04:00] VITALS: BP 119/67; TEMP 98.2; O2SAT 98
[2024-01-05 08:00] VITALS: BP 117/71; TEMP 97.9; O2SAT 98
[2024-01-05] MEDS: MULTIVIT W/MINERALS 1 TAB TABLET PO SCH (08:04)
[2024-01-05 12:00] VITALS: BP 96/62; TEMP 97.7; O2SAT 96
[2024-01-05 16:00] VITALS: BP 98/60; TEMP 97.5; O2SAT 98
[2024-01-05 20:00] VITALS: BP 95/52; TEMP 98.4; O2SAT 98
[2024-01-06] VITALS: BP 112/69; TEMP 98.6; O2SAT 95
[2024-01-06 04:00] VITALS: BP 116/65; TEMP 98.9; O2SAT 96
[2024-01-06 08:00] VITALS: BP 121/72; TEMP 98.5; O2SAT 98
[2024-01-06] MEDS ORDERED: ANESTHESIA TRAY IN PYXIS 1 EA TRAY MC ONE (11:09)
[2024-01-06 11:29] LABS: INR 1.16 (0.91-1.10); PROTHROMBIN TIME 12.2 SECS (9.2-11.1)
[2024-01-06] MEDS ORDERED: FENTANYL PF 100MCG/2ML AMPUL ONE (12:31)
[2024-01-06] MEDS ORDERED: METHYLENE BLUE 10 ML VIAL ONE (13:23)
[2024-01-06 14:25] VITALS: BP 130/73; TEMP 98.6; O2SAT 98
[2024-01-06 16:00] VITALS: BP 126/68; TEMP 97.4; O2SAT 100
[2024-01-06 20:45] VITALS: BP 126/68; TEMP 97.4; O2SAT 100
[2024-01-07 00:31] VITALS: BP 105/62; TEMP 98.4; O2SAT 97
[2024-01-07 04:49] VITALS: BP 117/67; TEMP 98.6; O2SAT 97
[2024-01-07 07:21] LABS: BASOPHILS % (AUTO) 0.4 % (0.0-2.0); EOSINOPHILS # (AUTO) 0.6 K/uL (0.0-0.7); EOSINOPHILS % (AUTO) 6.6 % (0.0-6.0); HEMATOCRIT 30 % (39-51); HEMOGLOBIN 10.3 g/dL (13.5-17.5); LYMPHOCYTES # (AUTO) 1.9 K/uL (0.8-4.8); LYMPHOCYTES % (AUTO) 21.7 % (20.0-44.0); MEAN CORPUSCULAR HEMOGLOBIN 31 PG (26.0-33.0); MEAN CORPUSCULAR HGB CONC 34 g/dl (31.0-36.0); MEAN CORPUSCULAR VOLUME 92 fL (80-96); MONOCYTES # (AUTO) 0.6 K/uL (0.1-1.30); MONOCYTES % (AUTO) 7.2 % (2.0-12.0); NEUTROPHILS # (AUTO) 5.7 K/uL (1.8-8.9); NEUTROPHILS % (AUTO) 64.1 % (43.0-81.0); PLATELET COUNT (AUTO) 249 K/uL (150-450); RED BLOOD CELL COUNT(AUTO) 3.28 MIL/uL (4.5-6.0); RED CELL DISTRIBUTION WIDTH 15.5 % (11.5-15.0); WHITE BLOOD COUNT (AUTO) 8.9 K/uL (4.3-11.0)
[2024-01-07 07:32] LABS: CARBON DIOXIDE 28 mmol/L (21-32); CHLORIDE 103 mmol/L (98-107); CREATININE 0.4 mg/dL (0.6-1.3); GLUCOSE 92 mg/dL (74-106); MAGNESIUM 1.9 mg/dL (1.8-2.4); PHOSPHORUS 2.6 mg/dL (2.5-4.9); POTASSIUM 3.2 mmol/L (3.5-5.1); SODIUM SERUM 139 mmol/L (136-145); UREA NITROGEN, BLOOD 22 mg/dL (7-18)
[2024-01-07 08:00] VITALS: BP 117/64; TEMP 98.1; O2SAT 99
[2024-01-07] MEDS: POTASSIUM CHLORIDE 20 MEQ TAB.PRT.SR PO SCH (09:55)
== END 2024-01-07 15:55 | DRG 853 ==
LOC: ER 19:07 → MEDSG1 12-30 03:48 → ICU 01-01 13:36 → TELE1 01-01 22:07
PROVIDERS: ADMIT Nurse Practitioner Acute Care; ATTEND Internal Medicine
PROC: 0T9B80Z Drainage of Bladder with Drainage Device, Via Natural or Artificial Opening Endoscopic (ICD-10-PCS; principal; 2023-12-30)
PROC: 047Q3ZZ Dilation of Left Anterior Tibial Artery, Percutaneous Approach (ICD-10-PCS; 2024-01-01)
PROC: B41GYZZ Fluoroscopy of Left Lower Extremity Arteries using Other Contrast (ICD-10-PCS; 2024-01-01)
PROC: B41FYZZ Fluoroscopy of Right Lower Extremity Arteries using Other Contrast (ICD-10-PCS; 2024-01-01)
PROC: 0T7D8DZ Dilation of Urethra with Intraluminal Device, Via Natural or Artificial Opening Endoscopic (ICD-10-PCS; 2024-01-06)
DX: A41.9 Sepsis, unspecified organism (principal); G93.41 Metabolic encephalopathy; I50.22 Chronic systolic (congestive) heart failure; L97.419 Non-pressure chronic ulcer of right heel and midfoot with unspecified severity; N13.6 Pyonephrosis; E44.0 Moderate protein-calorie malnutrition; I70.92 Chronic total occlusion of artery of the extremities; I25.10 Atherosclerotic heart disease of native coronary artery without angina pectoris; N32.89 Other specified disorders of bladder; H40.9 Unspecified glaucoma; I11.0 Hypertensive heart disease with heart failure; N35.912 Unspecified bulbous urethral stricture, male; I70.209 Unspecified atherosclerosis of native arteries of extremities, unspecified extremity; N36.8 Other specified disorders of urethra; N40.1 Benign prostatic hyperplasia with lower urinary tract symptoms; R33.8 Other retention of urine; L89.626 Pressure-induced deep tissue damage of left heel; S91.302A Unspecified open wound, left foot, initial encounter; S91.301A Unspecified open wound, right foot, initial encounter; X58.XXXA Exposure to other specified factors, initial encounter; Y92.9 Unspecified place or not applicable; E88.09 Other disorders of plasma-protein metabolism, not elsewhere classified; Z95.1 Presence of aortocoronary bypass graft; Z96.643 Presence of artificial hip joint, bilateral; I35.0 Nonrheumatic aortic (valve) stenosis; Z74.09 Other reduced mobility; I25.5 Ischemic cardiomyopathy; Z74.01 Bed confinement status; Z87.440 Personal history of urinary (tract) infections; Z79.82 Long term (current) use of aspirin; Z79.899 Other long term (current) drug therapy; B96.89 Other specified bacterial agents as the cause of diseases classified elsewhere; Z86.19 Personal history of other infectious and parasitic diseases; R31.9 Hematuria, unspecified
CPT/HCPCS: 36246; 36415; 71045-TC; 75625; 75710-TC; 76770-TC; 80048-TC; 80076-TC; 81001; 82962-TC; 83605-TC; 83735-TC; 84100-TC; 84153-TC; 84154-TC; 84443-TC; 85025-TC; 85652-TC; 85730-TC; 86140-TC; 86850-TC; 87040-TC; 87081-TC; 87086-TC; A4216; A4223; C1769; C1887; C1894; G0378; G0500; J0696; J0744; J1644; J1650; J2250; J2405; J2543; J2704; J3010; J3490; J7030; J7040; J7050; J7060; Q9967; Q9968

== ENCOUNTER 2024-02-03 15:59 | Inpatient (IN) | payer MEDICARE, OTHER ==
[~2024-02-03] VITALS: Ht 172.7 cm; Wt 55.9 kg
[~2024-02-03 15:59] MED LIST changes: -ALLA266C2 TP; +AMIN30LI66 PO; -ASCO-340 PO; -HYDR28.32 TP; -LEVO500T90 PO; +LOSA25TA27 PO; +MERO500V23 IV; -SODIUM CHLORIDE IV
[2024-02-03 17:28] LABS: BASOPHILS # (AUTO) 0.1 K/uL (0.0-0.2); BASOPHILS % (AUTO) 0.7 % (0.0-2.0); EOSINOPHILS # (AUTO) 0.6 K/uL (0.0-0.7); EOSINOPHILS % (AUTO) 4.9 % (0.0-6.0); HEMATOCRIT 38 % (39-51); HEMOGLOBIN 12.8 g/dL (13.5-17.5); LYMPHOCYTES # (AUTO) 3.9 K/uL (0.8-4.8); MEAN CORPUSCULAR HEMOGLOBIN 30 PG (26.0-33.0); MEAN CORPUSCULAR HGB CONC 34 g/dl (31.0-36.0); MEAN CORPUSCULAR VOLUME 90 fL (80-96); MONOCYTES % (AUTO) 8.5 % (2.0-12.0); NEUTROPHILS # (AUTO) 6.5 K/uL (1.8-8.9); NEUTROPHILS % (AUTO) 53.9 % (43.0-81.0); PLATELET COUNT (AUTO) 319 K/uL (150-450); RED BLOOD CELL COUNT(AUTO) 4.22 MIL/uL (4.5-6.0); RED CELL DISTRIBUTION WIDTH 14.8 % (11.5-15.0); WHITE BLOOD COUNT (AUTO) 12.1 K/uL (4.3-11.0)
[2024-02-03 17:36] LABS: CALCIUM, SERUM 9.9 mg/dL (8.5-10.1); CARBON DIOXIDE 28 mmol/L (21-32); CHLORIDE 94 mmol/L (98-107); CREATININE 0.8 mg/dL (0.6-1.3); GLUCOSE 99 mg/dL (74-106); POTASSIUM 5.2 mmol/L (3.5-5.1); SODIUM SERUM 127 mmol/L (136-145); UREA NITROGEN, BLOOD 24 mg/dL (7-18)
[2024-02-03 17:42] LABS: ALANINE AMINOTRANSFERASE 26 U/L (12-78); ALBUMIN 3.4 g/dL (3.4-5.0); ALKALINE PHOSPHATASE 98 U/L (46-116); ASPARTATE AMINOTRANSFERASE 23 U/L (15-37); BILIRUBIN,DIRECT 0.2 mg/dL (0.0-0.2); BILIRUBIN,TOTAL 0.5 mg/dL (0.2-1.0); LIPASE 67 U/L (16-77); TOTAL PROTEIN, SERUM 7.4 g/dL (6.4-8.2)
[2024-02-03 17:56] LABS: APPEARANCE,URINE CLOUDY (CLEAR); COLOR,URINE YELLOW (YELLOW); PH,URINE 6.5 (5.0-8.0)
[2024-02-03 17:57] LABS: BLOOD, URINE 3+ Ery/uL (NEGATIVE); PROTEIN,URINE NEGATIVE (NEGATIVE); UGLUCOSE NEGATIVE (NEGATIVE)
[2024-02-03 17:58] LABS: BILIRUBIN,URINE NEGATIVE (NEGATIVE); KETONES,URINE NEGATIVE (NEGATIVE); LEUKOCYTE ESTERASE ,URINE 3+ (NEGATIVE); NITRITE, URINE NEGATIVE (NEGATIVE); UROBILINOGEN,URINE 0.2 EU/dL (0.2)
[2024-02-03] MEDS ORDERED: CEFTRIAXONE 1GM BAG (ER ONLY) 1 GM/50 ML PIGGYBACK IV ONE (18:30)
[2024-02-03] MEDS ORDERED: ACET325T53 PO (18:50)
[2024-02-03] MEDS ORDERED: TRAM50TA PO (18:50)
[2024-02-03] MEDS ORDERED: ASCO-352 PO (18:50)
[2024-02-03] MEDS ORDERED: CRAN300T PO (18:50)
[2024-02-03] MEDS: IV NS 0.9% 1,000 ML BAG IV ONE (18:55)
[2024-02-03] MEDS: CEFTRIAXONE 1 G in IV D5W 50 ML IV ONE (18:55)
[2024-02-03] MEDS: SODIUM POLYSTYRENE SULFONATE 15 G/60 ML BOTTLE PO ONE (18:56)
[2024-02-03 20:25] LABS: ADD URINE CULTURE YES; BACTERIA,URINE 2+ /HPF (None Seen); SQUAMOUS EPITHELIAL CELL,UR None Seen /HPF (None Seen); WBC,URINE TOO NUMEROUS TO COUN /HPF (0-3)
[2024-02-03 20:30] VITALS: BP 120/64; TEMP 98.1; O2SAT 97
[2024-02-03] MEDS ORDERED: MAG HYDROX/AL HYDROX/SIMETH 30 ML UDC PO PRN (20:30)
[2024-02-03] MEDS ORDERED: TRAMADOL HCL 50 MG TABLET PO PRN (20:30)
[2024-02-03] MEDS ORDERED: MAGNESIUM HYDROXIDE 30 ML UDC PO PRN ×2 (20:30)
[2024-02-03] MEDS ORDERED: ZOLPIDEM TARTRATE 5 MG TABLET PO PRN (20:30)
[2024-02-03] MEDS ORDERED: ACETAMINOPHEN 325 MG TABLET PO PRN (20:30)
[2024-02-03] MEDS ORDERED: ONDANSETRON HCL/PF 4 MG/2 ML VIAL IVP PRN (20:30)
[2024-02-03] MEDS ORDERED: BISACODYL SUPP (10 MG) 10 MG/SUPP.RECT SUPP.RECT RC PRN (20:30)
[2024-02-03 20:34] LABS: RBC,URINE TOO NUMEROUS TO COUN /HPF (0-2); YEAST,URINE Hyphal filaments /HPF (None Seen)
[2024-02-03] MEDS: Z GUARD REMEDY 4 OZ OINT TP PRN (20:45)
[2024-02-03] MEDS ORDERED: Medication Not On Formulary EA (Netarsudil Mesylat/Latanoprost (Rocklatan 0.02%-0.005% E EACHEYE SCH (22:00)
[2024-02-03] MEDS ORDERED: Medication Not On Formulary EA (Melatonin 6 MG) PO SCH (22:00)
[2024-02-03] MEDS: IV NS 0.9% 1,000 ML IV ONE (22:00)
[2024-02-03] MEDS: METOPROLOL TARTRATE 25 MG TABLET PO SCH (22:01)
[2024-02-03 22:30] VITALS: BP 120/64; TEMP 98.1; O2SAT 97
[2024-02-04 07:00] VITALS: BP 96/68; TEMP 98.1; O2SAT 97
[2024-02-04] MEDS ORDERED: Medication Not On Formulary EA (Amino AC/Protein Hydr/Whey Pro (Liquacel Liquid Protein PO SCH (09:00)
[2024-02-04] MEDS ORDERED: SPIRONOLACTONE 25 MG TABLET PO SCH (09:00)
[2024-02-04] MEDS ORDERED: DORZOLAMIDE OPTH 2% 10 ML BOTTLE EACHEYE SCH ×2 (09:00)
[2024-02-04] MEDS ORDERED: LOSARTAN POTASSIUM 25 MG TABLET PO SCH (09:00)
[2024-02-04] MEDS ORDERED: Medication Not On Formulary EA (Cranberry Extract (Cranberry) 450 MG) PO SCH (09:00)
[2024-02-04] MEDS: CHOLECALCIFEROL 1,000 UNIT TABLET (VIT D3) PO SCH (09:01)
[2024-02-04] MEDS: FERROUS SULFATE (325 MG) 325 MG/TAB TABLET PO SCH (09:02)
[2024-02-04] MEDS: PANTOPRAZOLE 40 MG VIAL IV SCH (09:02)
[2024-02-04] MEDS: ASCORBIC ACID 500 MG TABLET PO SCH (09:02)
[2024-02-04] MEDS: MULTIVIT W/MINERALS 1 TAB TABLET PO SCH (09:02)
[2024-02-04] MEDS: ASPIRIN 81 MG TAB.CHEW PO SCH (09:02)
[2024-02-04] MEDS: TIMOLOL 0.5% SOLN OPHTH 5 ML BOTTLE EACHEYE SCH (09:22)
[2024-02-04] MEDS: PILOCARPINE 2% OPTH DROP 15 ML BOTTLE EACHEYE SCH (09:22)
[2024-02-04] MEDS: BRIMONIDINE TARTRATE OPHT SOLN 5 ML BOTTLE EACHEYE SCH (09:23)
[2024-02-04] MEDS: CALCIUM CARB 600MG /VIT D 1 EACH TABLET PO SCH (09:58)
[2024-02-04 16:16] LABS: BASOPHILS % (AUTO) 0.5 % (0.0-2.0); EOSINOPHILS # (AUTO) 0.4 K/uL (0.0-0.7); EOSINOPHILS % (AUTO) 4.5 % (0.0-6.0); HEMATOCRIT 33 % (39-51); HEMOGLOBIN 11.4 g/dL (13.5-17.5); LYMPHOCYTES # (AUTO) 2.5 K/uL (0.8-4.8); MEAN CORPUSCULAR HEMOGLOBIN 31 PG (26.0-33.0); MEAN CORPUSCULAR HGB CONC 34 g/dl (31.0-36.0); MEAN CORPUSCULAR VOLUME 91 fL (80-96); MONOCYTES # (AUTO) 0.7 K/uL (0.1-1.30); MONOCYTES % (AUTO) 7.8 % (2.0-12.0); NEUTROPHILS # (AUTO) 5.4 K/uL (1.8-8.9); NEUTROPHILS % (AUTO) 59.2 % (43.0-81.0); PLATELET COUNT (AUTO) 230 K/uL (150-450); RED BLOOD CELL COUNT(AUTO) 3.64 MIL/uL (4.5-6.0); RED CELL DISTRIBUTION WIDTH 14.9 % (11.5-15.0)
[2024-02-04 16:39] VITALS: BP 116/72; TEMP 97.5; O2SAT 98
[2024-02-04] MEDS: CLOTRIMAZOLE 1% 15 GM TUBE TP SCH (16:41)
[2024-02-04 16:44] LABS: CALCIUM, SERUM 8.7 mg/dL (8.5-10.1); CARBON DIOXIDE 29 mmol/L (21-32); CHLORIDE 98 mmol/L (98-107); CREATININE 0.6 mg/dL (0.6-1.3); GLUCOSE 120 mg/dL (74-106); MAGNESIUM 1.8 mg/dL (1.8-2.4); PHOSPHORUS 2.7 mg/dL (2.5-4.9); POTASSIUM 3.8 mmol/L (3.5-5.1); SODIUM SERUM 133 mmol/L (136-145); UREA NITROGEN, BLOOD 10 mg/dL (7-18)
[2024-02-04] MEDS: CEFTRIAXONE 1 G in IV D5W 50 ML IV SCH (17:09)
[2024-02-04] MEDS: MUPIROCIN OINT 2% 22 GM TUBE TP SCH (17:55)
[2024-02-04 20:20] VITALS: BP 94/54; TEMP 98.6; O2SAT 97
[2024-02-05 06:36] LABS: BASOPHILS # (AUTO) 0.1 K/uL (0.0-0.2); BASOPHILS % (AUTO) 1.1 % (0.0-2.0); EOSINOPHILS # (AUTO) 0.7 K/uL (0.0-0.7); EOSINOPHILS % (AUTO) 7.4 % (0.0-6.0); HEMATOCRIT 32 % (39-51); LYMPHOCYTES # (AUTO) 2.5 K/uL (0.8-4.8); LYMPHOCYTES % (AUTO) 24.9 % (20.0-44.0); MEAN CORPUSCULAR HEMOGLOBIN 32 PG (26.0-33.0); MEAN CORPUSCULAR HGB CONC 35 g/dl (31.0-36.0); MEAN CORPUSCULAR VOLUME 92 fL (80-96); MONOCYTES # (AUTO) 0.6 K/uL (0.1-1.30); NEUTROPHILS % (AUTO) 60.6 % (43.0-81.0); PLATELET COUNT (AUTO) 194 K/uL (150-450); RED BLOOD CELL COUNT(AUTO) 3.48 MIL/uL (4.5-6.0); RED CELL DISTRIBUTION WIDTH 14.9 % (11.5-15.0); WHITE BLOOD COUNT (AUTO) 9.9 K/uL (4.3-11.0)
[2024-02-05 07:44] LABS: URIC ACID 5.4 mg/dL (2.6-7.2)
[2024-02-05 07:51] LABS: CALCIUM, SERUM 8.6 mg/dL (8.5-10.1); CARBON DIOXIDE 24 mmol/L (21-32); CHLORIDE 105 mmol/L (98-107); CREATININE 0.5 mg/dL (0.6-1.3); GLUCOSE 96 mg/dL (74-106); MAGNESIUM 1.9 mg/dL (1.8-2.4); PHOSPHORUS 2.7 mg/dL (2.5-4.9); POTASSIUM 3.3 mmol/L (3.5-5.1); SODIUM SERUM 139 mmol/L (136-145); UREA NITROGEN, BLOOD 11 mg/dL (7-18)
[2024-02-05 08:00] VITALS: BP 124/70; TEMP 98.1; O2SAT 97
[2024-02-05] MEDS: PANTOPRAZOLE 40 MG TABLET.DR PO SCH (09:02)
[2024-02-05] MEDS: PHENAZOPYRIDINE HCL 200 MG TABLET PO SCH (10:13)
[2024-02-05] MEDS: POTASSIUM CHLORIDE 20 MEQ TAB.PRT.SR PO ONE (10:13)
[2024-02-05 20:18] VITALS: BP 95/55; TEMP 98.4; O2SAT 97
[2024-02-05] MEDS: MUPIROCIN OINT 2% 22 GM TUBE NS SCH (21:30)
[2024-02-05] MEDS: IV NS 0.9% 500 ML IV ONE (23:32)
[2024-02-06 07:26] LABS: BASOPHILS # (AUTO) 0.1 K/uL (0.0-0.2); BASOPHILS % (AUTO) 0.6 % (0.0-2.0); EOSINOPHILS # (AUTO) 0.6 K/uL (0.0-0.7); EOSINOPHILS % (AUTO) 6.4 % (0.0-6.0); HEMATOCRIT 31 % (39-51); HEMOGLOBIN 10.8 g/dL (13.5-17.5); LYMPHOCYTES # (AUTO) 2.1 K/uL (0.8-4.8); LYMPHOCYTES % (AUTO) 20.9 % (20.0-44.0); MEAN CORPUSCULAR HEMOGLOBIN 31 PG (26.0-33.0); MEAN CORPUSCULAR HGB CONC 34 g/dl (31.0-36.0); MEAN CORPUSCULAR VOLUME 90 fL (80-96); MONOCYTES # (AUTO) 0.7 K/uL (0.1-1.30); MONOCYTES % (AUTO) 6.5 % (2.0-12.0); NEUTROPHILS # (AUTO) 6.7 K/uL (1.8-8.9); NEUTROPHILS % (AUTO) 65.6 % (43.0-81.0); PLATELET COUNT (AUTO) 205 K/uL (150-450); RED BLOOD CELL COUNT(AUTO) 3.48 MIL/uL (4.5-6.0); RED CELL DISTRIBUTION WIDTH 14.6 % (11.5-15.0); WHITE BLOOD COUNT (AUTO) 10.2 K/uL (4.3-11.0)
[2024-02-06 08:04] LABS: CALCIUM, SERUM 8.3 mg/dL (8.5-10.1); CARBON DIOXIDE 23 mmol/L (21-32); CHLORIDE 104 mmol/L (98-107); CREATININE 0.4 mg/dL (0.6-1.3); GLUCOSE 99 mg/dL (74-106); MAGNESIUM 1.8 mg/dL (1.8-2.4); PHOSPHORUS 2.2 mg/dL (2.5-4.9); SODIUM SERUM 137 mmol/L (136-145); UREA NITROGEN, BLOOD 8 mg/dL (7-18)
[2024-02-06 08:07] VITALS: BP 115/56; TEMP 97.7; O2SAT 96
[2024-02-06 08:33] VITALS: BP 115/56; TEMP 97.7; O2SAT 96
[2024-02-06] MEDS: NEPRO VAN 237 ML CAN PO PRN (08:37)
[2024-02-06] MEDS: POTASSIUM CHLORIDE 20 MEQ TAB.PRT.SR PO SCH (09:53)
[2024-02-06] MEDS ORDERED: CEFT1VIA15 IV (10:27)
[2024-02-06] MEDS: K PHOS NEUTRAL 250 MG TABLET PO ONE (15:19)
== END 2024-02-06 15:29 | DRG 698 ==
LOC: ER 16:03 → MED 19:52
PROVIDERS: ATTEND Nurse Practitioner Family
DX: T83.091A Other mechanical complication of indwelling urethral catheter, initial encounter (principal); G93.41 Metabolic encephalopathy; N39.0 Urinary tract infection, site not specified; I50.22 Chronic systolic (congestive) heart failure; E87.1 Hypo-osmolality and hyponatremia; E86.0 Dehydration; E87.5 Hyperkalemia; I11.0 Hypertensive heart disease with heart failure; I25.10 Atherosclerotic heart disease of native coronary artery without angina pectoris; N40.0 Benign prostatic hyperplasia without lower urinary tract symptoms; Z79.82 Long term (current) use of aspirin; Z79.899 Other long term (current) drug therapy; B96.89 Other specified bacterial agents as the cause of diseases classified elsewhere; Z95.1 Presence of aortocoronary bypass graft; Z96.643 Presence of artificial hip joint, bilateral; M62.3 Immobility syndrome (paraplegic); D64.9 Anemia, unspecified; Y84.6 Urinary catheterization as the cause of abnormal reaction of the patient, or of later complication, without mention of misadventure at the time of the procedure; Y92.129 Unspecified place in nursing home as the place of occurrence of the external cause
CPT/HCPCS: 36415; 80048-TC; 80076-TC; 81001; 83690-TC; 83735-TC; 84100-TC; 84443-TC; 84550-TC; 85025-TC; 87081-TC; 87086-TC; A4223; G0378; J0696; J2470; J7030; J7040; J7060

== ENCOUNTER 2024-02-22 12:54 | Inpatient (IN) | payer MEDICARE, OTHER ==
[~2024-02-22] VITALS: Ht 165.1 cm; Wt 54.4 kg
[~2024-02-22 12:54] MED LIST changes: +ASCO-352 PO; +CEFT1VIA15 IV; +CRAN300T PO; -MERO500V23 IV; +TRAM50TA PO
[2024-02-22] MEDS: IV NS 0.9% 1,000 ML BAG IV ONE (13:25)
[2024-02-22] MEDS ORDERED: METO25TA6 PO (13:36)
[2024-02-22] MEDS ORDERED: ZINC1CAP3 PO (13:36)
[2024-02-22] MEDS ORDERED: SPIR25TA6 PO (13:36)
[2024-02-22] MEDS ORDERED: MIRT-90 PO (13:36)
[2024-02-22 13:46] LABS: INR 1.07 (0.91-1.10); PARTIAL THROMBOPLASTIN TIME 30.8 SEC (24.3-34.3); PROTHROMBIN TIME 11.3 SECS (9.2-11.1)
[2024-02-22 13:47] LABS: BASOPHILS # (AUTO) 0.1 K/uL (0.0-0.2); BASOPHILS % (AUTO) 1.1 % (0.0-2.0); EOSINOPHILS # (AUTO) 0.5 K/uL (0.0-0.7); EOSINOPHILS % (AUTO) 5.8 % (0.0-6.0); HEMATOCRIT 38 % (39-51); HEMOGLOBIN 12.9 g/dL (13.5-17.5); LYMPHOCYTES % (AUTO) 38.2 % (20.0-44.0); MEAN CORPUSCULAR HEMOGLOBIN 31 PG (26.0-33.0); MEAN CORPUSCULAR HGB CONC 34 g/dl (31.0-36.0); MEAN CORPUSCULAR VOLUME 92 fL (80-96); MONOCYTES # (AUTO) 0.7 K/uL (0.1-1.30); MONOCYTES % (AUTO) 9.3 % (2.0-12.0); NEUTROPHILS # (AUTO) 3.6 K/uL (1.8-8.9); NEUTROPHILS % (AUTO) 45.6 % (43.0-81.0); PLATELET COUNT (AUTO) 270 K/uL (150-450); RED BLOOD CELL COUNT(AUTO) 4.16 MIL/uL (4.5-6.0); RED CELL DISTRIBUTION WIDTH 14.5 % (11.5-15.0); WHITE BLOOD COUNT (AUTO) 7.8 K/uL (4.3-11.0)
[2024-02-22 13:50] LABS: LACTIC ACID 1.1 mmol/L (0.4-2.0)
[2024-02-22 13:52] LABS: CALCIUM, SERUM 9.9 mg/dL (8.5-10.1); CARBON DIOXIDE 28 mmol/L (21-32); CHLORIDE 101 mmol/L (98-107); CREATININE 0.5 mg/dL (0.6-1.3); GLUCOSE 88 mg/dL (74-106); POTASSIUM 4.1 mmol/L (3.5-5.1); SODIUM SERUM 138 mmol/L (136-145); UREA NITROGEN, BLOOD 14 mg/dL (7-18)
[2024-02-22 13:58] LABS: ALANINE AMINOTRANSFERASE 18 U/L (12-78); ALBUMIN 3.3 g/dL (3.4-5.0); ALKALINE PHOSPHATASE 95 U/L (46-116); ASPARTATE AMINOTRANSFERASE 19 U/L (15-37); BILIRUBIN,DIRECT 0.2 mg/dL (0.0-0.2); BILIRUBIN,TOTAL 0.5 mg/dL (0.2-1.0); TOTAL PROTEIN, SERUM 7.4 g/dL (6.4-8.2)
[2024-02-22 15:00] VITALS: BP 124/82; TEMP 97.7; O2SAT 95
[2024-02-22 15:03] LABS: APPEARANCE,URINE CLOUDY (CLEAR); BILIRUBIN,URINE NEGATIVE (NEGATIVE); BLOOD, URINE 1+ Ery/uL (NEGATIVE); COLOR,URINE YELLOW (YELLOW); KETONES,URINE NEGATIVE (NEGATIVE); LEUKOCYTE ESTERASE ,URINE 3+ (NEGATIVE); NITRITE, URINE POSITIVE (NEGATIVE); PROTEIN,URINE 1+ mg/dl (NEGATIVE); UGLUCOSE NEGATIVE (NEGATIVE)
[2024-02-22 15:08] LABS: ADD URINE CULTURE YES; BACTERIA,URINE 3+ /HPF (None Seen); SQUAMOUS EPITHELIAL CELL,UR 0-2 /HPF (None Seen); WBC,URINE 51-80 /HPF (0-3)
[2024-02-22] MEDS ORDERED: ONDANSETRON HCL/PF 4 MG/2 ML VIAL IVP PRN (16:30)
[2024-02-22] MEDS ORDERED: MAGNESIUM HYDROXIDE 30 ML UDC PO PRN ×2 (16:30→19:30)
[2024-02-22] MEDS ORDERED: MAG HYDROX/AL HYDROX/SIMETH 30 ML UDC PO PRN (16:30)
[2024-02-22] MEDS ORDERED: ACETAMINOPHEN 325 MG TABLET PO PRN (16:30)
[2024-02-22] MEDS ORDERED: Z GUARD REMEDY 4 OZ OINT TP PRN (17:00)
[2024-02-22] MEDS: CEFTRIAXONE 1 G in IV D5W 50 ML IV SCH (17:00)
[2024-02-22] MEDS: ENOXAPARIN SODIUM 40 MG/0.4 ML DISP.SYRIN SQ SCH (17:14)
[2024-02-22] MEDS ORDERED: BISACODYL SUPP (10 MG) 10 MG/SUPP.RECT SUPP.RECT RC PRN (19:30)
[2024-02-22] MEDS ORDERED: TRAMADOL HCL 50 MG TABLET PO PRN (19:30)
[2024-02-22] MEDS ORDERED: NA PHOS,M-B/NA PHOS,DI-BA 1 EA ENEMA RC PRN (19:30)
[2024-02-22] MEDS: MIRTAZAPINE 15 MG TABLET PO SCH (21:11)
[2024-02-22] MEDS: METOPROLOL TARTRATE 25 MG TABLET PO SCH (21:13)
[2024-02-22] MEDS: MELATONIN 3 MG TABLET PO SCH (21:32)
[2024-02-22] MEDS ORDERED: Medication Not On Formulary EA (Netarsudil Mesylat/Latanoprost (Rocklatan 0.02%-0.005% E EACHEYE SCH (22:00)
[2024-02-22] MEDS ORDERED: ZOLPIDEM TARTRATE 5 MG TABLET PO PRN (22:00)
[2024-02-22 23:00] VITALS: BP 136/79; TEMP 97.5; O2SAT 98
[2024-02-23 07:00] VITALS: BP 136/79; TEMP 97.5; O2SAT 98
[2024-02-23] MEDS ORDERED: PANTOPRAZOLE 40 MG TABLET.DR PO SCH (07:30)
[2024-02-23 07:36] LABS: BASOPHILS # (AUTO) 0.1 K/uL (0.0-0.2); CALCIUM, SERUM 9.7 mg/dL (8.5-10.1); CARBON DIOXIDE 26 mmol/L (21-32); CHLORIDE 104 mmol/L (98-107); CREATININE 0.6 mg/dL (0.6-1.3); EOSINOPHILS # (AUTO) 0.4 K/uL (0.0-0.7); EOSINOPHILS % (AUTO) 5.6 % (0.0-6.0); GLUCOSE 70 mg/dL (74-106); HEMATOCRIT 37 % (39-51); HEMOGLOBIN 12.2 g/dL (13.5-17.5); LYMPHOCYTES # (AUTO) 2.4 K/uL (0.8-4.8); LYMPHOCYTES % (AUTO) 31.9 % (20.0-44.0); MEAN CORPUSCULAR HEMOGLOBIN 31 PG (26.0-33.0); MEAN CORPUSCULAR HGB CONC 33 g/dl (31.0-36.0); MEAN CORPUSCULAR VOLUME 93 fL (80-96); MONOCYTES # (AUTO) 0.6 K/uL (0.1-1.30); MONOCYTES % (AUTO) 7.8 % (2.0-12.0); NEUTROPHILS % (AUTO) 53.7 % (43.0-81.0); PHOSPHORUS 3.2 mg/dL (2.5-4.9); PLATELET COUNT (AUTO) 251 K/uL (150-450); POTASSIUM 3.8 mmol/L (3.5-5.1); RED BLOOD CELL COUNT(AUTO) 3.97 MIL/uL (4.5-6.0); RED CELL DISTRIBUTION WIDTH 14.4 % (11.5-15.0); SODIUM SERUM 139 mmol/L (136-145); UREA NITROGEN, BLOOD 14 mg/dL (7-18); WHITE BLOOD COUNT (AUTO) 7.4 K/uL (4.3-11.0)
[2024-02-23] MEDS: PANTOPRAZOLE 40 MG TABLET.DR PO SCH (08:18)
[2024-02-23] MEDS: CHOLECALCIFEROL 1,000 UNIT TABLET (VIT D3) PO SCH (08:18)
[2024-02-23] MEDS: ZINC SULFATE 220 MG CAPSULE PO SCH (08:18)
[2024-02-23] MEDS: ASCORBIC ACID 500 MG TABLET PO SCH (08:18)
[2024-02-23] MEDS: FERROUS SULFATE (325 MG) 325 MG/TAB TABLET PO SCH (08:18)
[2024-02-23] MEDS: ASPIRIN 81 MG TAB.CHEW PO SCH (08:18)
[2024-02-23] MEDS: MULTIVITAMINS,THERAGRAN 1 UDTAB TABLET PO SCH (08:18)
[2024-02-23] MEDS: SPIRONOLACTONE 25 MG TABLET PO SCH (08:19)
[2024-02-23] MEDS: CALCIUM CARB 600MG /VIT D 1 EACH TABLET PO SCH (08:19)
[2024-02-23] MEDS: LOSARTAN POTASSIUM 25 MG TABLET PO SCH (08:24)
[2024-02-23] MEDS: PILOCARPINE 2% OPTH DROP 15 ML BOTTLE EACHEYE SCH (08:26)
[2024-02-23] MEDS: BRIMONIDINE TARTRATE OPHT SOLN 5 ML BOTTLE EACHEYE SCH (08:26)
[2024-02-23] MEDS: TIMOLOL 0.5% SOLN OPHTH 5 ML BOTTLE EACHEYE SCH (08:26)
[2024-02-23] MEDS ORDERED: Medication Not On Formulary EA (Cranberry Extract (Cranberry) 450 MG) PO SCH (09:00)
[2024-02-23 15:00] VITALS: BP 103/66; TEMP 97.9; O2SAT 98
[2024-02-23 20:00] VITALS: BP 90/54; TEMP 98.2; O2SAT 99
[2024-02-24 04:00] VITALS: BP 113/65; TEMP 97.9; O2SAT 99
[2024-02-24 06:35] LABS: BASOPHILS # (AUTO) 0.1 K/uL (0.0-0.2); BASOPHILS % (AUTO) 0.8 % (0.0-2.0); EOSINOPHILS # (AUTO) 0.4 K/uL (0.0-0.7); EOSINOPHILS % (AUTO) 4.9 % (0.0-6.0); HEMATOCRIT 36 % (39-51); HEMOGLOBIN 12.2 g/dL (13.5-17.5); LYMPHOCYTES # (AUTO) 2.1 K/uL (0.8-4.8); LYMPHOCYTES % (AUTO) 24.6 % (20.0-44.0); MEAN CORPUSCULAR HEMOGLOBIN 31 PG (26.0-33.0); MEAN CORPUSCULAR HGB CONC 34 g/dl (31.0-36.0); MEAN CORPUSCULAR VOLUME 91 fL (80-96); MONOCYTES # (AUTO) 0.7 K/uL (0.1-1.30); MONOCYTES % (AUTO) 8.3 % (2.0-12.0); NEUTROPHILS # (AUTO) 5.2 K/uL (1.8-8.9); NEUTROPHILS % (AUTO) 61.4 % (43.0-81.0); PLATELET COUNT (AUTO) 247 K/uL (150-450); RED BLOOD CELL COUNT(AUTO) 3.93 MIL/uL (4.5-6.0); RED CELL DISTRIBUTION WIDTH 14.3 % (11.5-15.0); WHITE BLOOD COUNT (AUTO) 8.4 K/uL (4.3-11.0)
[2024-02-24 06:45] LABS: CALCIUM, SERUM 9.9 mg/dL (8.5-10.1); CARBON DIOXIDE 30 mmol/L (21-32); CHLORIDE 102 mmol/L (98-107); CREATININE 0.7 mg/dL (0.6-1.3); GLUCOSE 90 mg/dL (74-106); MAGNESIUM 1.9 mg/dL (1.8-2.4); PHOSPHORUS 2.8 mg/dL (2.5-4.9); SODIUM SERUM 137 mmol/L (136-145); UREA NITROGEN, BLOOD 15 mg/dL (7-18)
[2024-02-24] MEDS: PROSOURCE DIETARY LIQUID 30 ML LIQUID PO SCH (09:00)
[2024-02-24] MEDS: CLOTRIMAZOLE 1% 15 GM TUBE TP SCH (16:17)
[2024-02-24] MEDS: ENSURE ENLIVE 237 ML LIQUID (VANILLA) PO SCH (16:18)
[2024-02-24 20:00] VITALS: BP 110/60; TEMP 98.8; O2SAT 98
[2024-02-25 04:00] VITALS: BP 108/95; TEMP 98.2; O2SAT 98
[2024-02-25 12:00] VITALS: BP 128/76; TEMP 99.4
[2024-02-25 15:39] VITALS: O2SAT 92
[2024-02-25 16:00] VITALS: BP 131/86; TEMP 99.7; O2SAT 100
[2024-02-25 20:00] VITALS: BP 100/67; TEMP 98.8; O2SAT 100
[2024-02-25] MEDS: LATANOPROST EYE DROP 0.005% 2.5 ML BOTTLE EACHEYE SCH (21:19)
[2024-02-26 04:00] VITALS: BP 103/73; TEMP 98.1; O2SAT 100
[2024-02-26 06:04] VITALS: O2SAT 100
[2024-02-26 09:00] VITALS: BP 90/58; TEMP 98.1; O2SAT 100
[2024-02-26 12:00] VITALS: TEMP 98
[2024-02-26 16:00] VITALS: BP 104/79; TEMP 98.5; O2SAT 92
[2024-02-26 21:46] VITALS: BP 109/69; TEMP 98.2; O2SAT 92
[2024-02-27 06:25] VITALS: BP 115/72; TEMP 97.7; O2SAT 91
[2024-02-27 07:15] LABS: BASOPHILS % (AUTO) 0.2 % (0.0-2.0); EOSINOPHILS % (AUTO) 0.1 % (0.0-6.0); HEMATOCRIT 37 % (39-51); HEMOGLOBIN 12.4 g/dL (13.5-17.5); LYMPHOCYTES # (AUTO) 2.7 K/uL (0.8-4.8); LYMPHOCYTES % (AUTO) 24.5 % (20.0-44.0); MEAN CORPUSCULAR HEMOGLOBIN 31 PG (26.0-33.0); MEAN CORPUSCULAR HGB CONC 33 g/dl (31.0-36.0); MEAN CORPUSCULAR VOLUME 92 fL (80-96); MONOCYTES # (AUTO) 0.8 K/uL (0.1-1.30); MONOCYTES % (AUTO) 7.6 % (2.0-12.0); NEUTROPHILS # (AUTO) 7.4 K/uL (1.8-8.9); NEUTROPHILS % (AUTO) 67.6 % (43.0-81.0); PLATELET COUNT (AUTO) 225 K/uL (150-450); RED BLOOD CELL COUNT(AUTO) 4.05 MIL/uL (4.5-6.0); RED CELL DISTRIBUTION WIDTH 14.2 % (11.5-15.0)
[2024-02-27 07:33] LABS: CALCIUM, SERUM 10.1 mg/dL (8.5-10.1); CARBON DIOXIDE 29 mmol/L (21-32); CHLORIDE 102 mmol/L (98-107); CREATININE 0.6 mg/dL (0.6-1.3); GLUCOSE 106 mg/dL (74-106); POTASSIUM 4.1 mmol/L (3.5-5.1); SODIUM SERUM 138 mmol/L (136-145); UREA NITROGEN, BLOOD 23 mg/dL (7-18)
[2024-02-27 10:14] VITALS: O2SAT 92
[2024-02-27 12:00] VITALS: BP 122/84; TEMP 98.5; O2SAT 95
[2024-02-27] MEDS: IV D5/ 0.9% NACL 1,000 ML IV PRN (18:58)
[2024-02-27 20:00] VITALS: BP 92/62; TEMP 98.6; O2SAT 95
[2024-02-28 04:00] VITALS: BP 121/68; TEMP 97.8; O2SAT 100
[2024-02-28 08:00] VITALS: BP 93/63; TEMP 97.9; O2SAT 95
[2024-02-28] MEDS: MEROPENEM 500 MG in IV NS 0.9% 50 ML IV SCH (09:58)
[2024-02-28] MEDS: JEVITY 1.2 CAL 1,000 ML BOTTLE GT PRN (11:33)
[2024-02-28 16:00] VITALS: BP 118/84; TEMP 97.5; O2SAT 99
[2024-02-28 20:00] VITALS: BP 114/56; TEMP 98.7; TEMP 99.7; O2SAT 93
[2024-02-29 04:00] VITALS: BP 94/71; TEMP 98.3; O2SAT 94
[2024-02-29 08:00] VITALS: BP 98/61; TEMP 98.6; O2SAT 95
[2024-02-29 15:02] LABS: THYROID STIMULATING HORMONE 0.6 uIU/mL (0.358-3.74)
[2024-02-29 16:00] VITALS: BP 96/61; TEMP 98.4; O2SAT 91
[2024-02-29 20:00] VITALS: BP 110/68; TEMP 98.2; O2SAT 93
[2024-02-29 22:46] VITALS: O2SAT 95
[2024-03-01 04:00] VITALS: BP 112/71; TEMP 98.1; O2SAT 95
[2024-03-01 06:26] LABS: BASOPHILS % (AUTO) 0.1 % (0.0-2.0); EOSINOPHILS % (AUTO) 0.1 % (0.0-6.0); HEMATOCRIT 34 % (39-51); HEMOGLOBIN 11.2 g/dL (13.5-17.5); LYMPHOCYTES # (AUTO) 3.2 K/uL (0.8-4.8); LYMPHOCYTES % (AUTO) 25.4 % (20.0-44.0); MEAN CORPUSCULAR HEMOGLOBIN 31 PG (26.0-33.0); MEAN CORPUSCULAR HGB CONC 33 g/dl (31.0-36.0); MEAN CORPUSCULAR VOLUME 93 fL (80-96); MONOCYTES # (AUTO) 1.1 K/uL (0.1-1.30); MONOCYTES % (AUTO) 8.6 % (2.0-12.0); NEUTROPHILS # (AUTO) 8.3 K/uL (1.8-8.9); NEUTROPHILS % (AUTO) 65.8 % (43.0-81.0); PLATELET COUNT (AUTO) 265 K/uL (150-450); RED BLOOD CELL COUNT(AUTO) 3.64 MIL/uL (4.5-6.0); RED CELL DISTRIBUTION WIDTH 13.7 % (11.5-15.0); WHITE BLOOD COUNT (AUTO) 12.6 K/uL (4.3-11.0)
[2024-03-01 06:43] LABS: CALCIUM, SERUM 9.6 mg/dL (8.5-10.1); CARBON DIOXIDE 27 mmol/L (21-32); CHLORIDE 113 mmol/L (98-107); CREATININE 0.7 mg/dL (0.6-1.3); GLUCOSE 124 mg/dL (74-106); POTASSIUM 3.8 mmol/L (3.5-5.1); SODIUM SERUM 151 mmol/L (136-145); UREA NITROGEN, BLOOD 24 mg/dL (7-18)
[2024-03-01 07:59] VITALS: O2SAT 96
[2024-03-01 08:00] VITALS: BP_SYST 100; BP_SYST 102; BP_DIAS 70; BP_DIAS 71; TEMP 99.9; O2SAT 96; O2SAT 99
[2024-03-01] MEDS: ACETAMINOPHEN 325 MG TABLET PO PRN (10:15)
[2024-03-01 16:00] VITALS: BP 95/53; TEMP 98.4; O2SAT 95
[2024-03-01] MEDS: OXYBUTYNIN CHLORIDE 5 MG TABLET PO SCH (16:48)
[2024-03-01 18:00] VITALS: BP 91/58; TEMP 98.4; O2SAT 95
[2024-03-01 20:00] VITALS: BP 140/67; TEMP 98.6; O2SAT 95
[2024-03-02 01:10] LABS: FOLIC ACID 11.7 ng/mL (>3.0)
[2024-03-02 04:00] VITALS: BP 125/52; TEMP 98.2; O2SAT 95
[2024-03-02 06:38] LABS: BASOPHILS % (AUTO) 0.2 % (0.0-2.0); EOSINOPHILS # (AUTO) 0.1 K/uL (0.0-0.7); EOSINOPHILS % (AUTO) 1.5 % (0.0-6.0); HEMATOCRIT 35 % (39-51); HEMOGLOBIN 11.4 g/dL (13.5-17.5); LYMPHOCYTES # (AUTO) 1.9 K/uL (0.8-4.8); LYMPHOCYTES % (AUTO) 19.5 % (20.0-44.0); MEAN CORPUSCULAR HEMOGLOBIN 31 PG (26.0-33.0); MEAN CORPUSCULAR HGB CONC 33 g/dl (31.0-36.0); MEAN CORPUSCULAR VOLUME 93 fL (80-96); MONOCYTES # (AUTO) 0.7 K/uL (0.1-1.30); MONOCYTES % (AUTO) 6.8 % (2.0-12.0); NEUTROPHILS # (AUTO) 7.2 K/uL (1.8-8.9); PLATELET COUNT (AUTO) 276 K/uL (150-450); RED BLOOD CELL COUNT(AUTO) 3.71 MIL/uL (4.5-6.0); RED CELL DISTRIBUTION WIDTH 14.2 % (11.5-15.0)
[2024-03-02 07:01] LABS: CALCIUM, SERUM 9.7 mg/dL (8.5-10.1); CARBON DIOXIDE 27 mmol/L (21-32); CHLORIDE 113 mmol/L (98-107); CREATININE 0.6 mg/dL (0.6-1.3); GLUCOSE 149 mg/dL (74-106); POTASSIUM 3.6 mmol/L (3.5-5.1); SODIUM SERUM 150 mmol/L (136-145); UREA NITROGEN, BLOOD 23 mg/dL (7-18)
[2024-03-02 08:00] VITALS: BP 100/74; TEMP 98.5; O2SAT 92
[2024-03-02] MEDS: IV D5W 1,000 ML IV SCH (13:03)
[2024-03-02 16:00] VITALS: BP 114/74; TEMP 98.1; O2SAT 94
[2024-03-02 20:00] VITALS: BP 120/82; TEMP 98.7; O2SAT 94
[2024-03-03 04:00] VITALS: BP 126/57; TEMP 97.9; O2SAT 94
[2024-03-03 06:36] LABS: BASOPHILS % (AUTO) 0.1 % (0.0-2.0); EOSINOPHILS # (AUTO) 0.4 K/uL (0.0-0.7); EOSINOPHILS % (AUTO) 3.2 % (0.0-6.0); HEMATOCRIT 33 % (39-51); HEMOGLOBIN 10.8 g/dL (13.5-17.5); LYMPHOCYTES # (AUTO) 2.4 K/uL (0.8-4.8); LYMPHOCYTES % (AUTO) 20.9 % (20.0-44.0); MEAN CORPUSCULAR HEMOGLOBIN 31 PG (26.0-33.0); MEAN CORPUSCULAR HGB CONC 33 g/dl (31.0-36.0); MEAN CORPUSCULAR VOLUME 93 fL (80-96); MONOCYTES # (AUTO) 0.6 K/uL (0.1-1.30); MONOCYTES % (AUTO) 5.6 % (2.0-12.0); NEUTROPHILS # (AUTO) 8.1 K/uL (1.8-8.9); NEUTROPHILS % (AUTO) 70.2 % (43.0-81.0); PLATELET COUNT (AUTO) 292 K/uL (150-450); RED CELL DISTRIBUTION WIDTH 14.1 % (11.5-15.0); WHITE BLOOD COUNT (AUTO) 11.5 K/uL (4.3-11.0)
[2024-03-03 07:22] LABS: CALCIUM, SERUM 9.1 mg/dL (8.5-10.1); CARBON DIOXIDE 32 mmol/L (21-32); CHLORIDE 111 mmol/L (98-107); CREATININE 0.6 mg/dL (0.6-1.3); GLUCOSE 143 mg/dL (74-106); POTASSIUM 4.3 mmol/L (3.5-5.1); SODIUM SERUM 149 mmol/L (136-145); UREA NITROGEN, BLOOD 26 mg/dL (7-18)
[2024-03-03 08:13] VITALS: O2SAT 95
[2024-03-03 08:32] LABS: MAGNESIUM 1.9 mg/dL (1.8-2.4); PHOSPHORUS 2.2 mg/dL (2.5-4.9)
[2024-03-03 12:00] VITALS: BP 111/65; TEMP 97.5; O2SAT 95
[2024-03-03] MEDS: K PHOS NEUTRAL 250 MG TABLET PO ONE (15:24)
[2024-03-03 20:00] VITALS: BP 106/60; TEMP 99; O2SAT 94
[2024-03-04 04:00] VITALS: BP 104/62; TEMP 98.3; O2SAT 95
[2024-03-04 04:41] VITALS: O2SAT 95
[2024-03-04 06:56] LABS: BASOPHILS % (AUTO) 0.2 % (0.0-2.0); EOSINOPHILS # (AUTO) 0.6 K/uL (0.0-0.7); EOSINOPHILS % (AUTO) 4.6 % (0.0-6.0); HEMATOCRIT 33 % (39-51); HEMOGLOBIN 10.5 g/dL (13.5-17.5); LYMPHOCYTES # (AUTO) 2.4 K/uL (0.8-4.8); LYMPHOCYTES % (AUTO) 19.1 % (20.0-44.0); MEAN CORPUSCULAR HEMOGLOBIN 30 PG (26.0-33.0); MEAN CORPUSCULAR HGB CONC 32 g/dl (31.0-36.0); MEAN CORPUSCULAR VOLUME 93 fL (80-96); MONOCYTES # (AUTO) 0.7 K/uL (0.1-1.30); MONOCYTES % (AUTO) 5.2 % (2.0-12.0); NEUTROPHILS # (AUTO) 8.9 K/uL (1.8-8.9); NEUTROPHILS % (AUTO) 70.9 % (43.0-81.0); PLATELET COUNT (AUTO) 302 K/uL (150-450); RED CELL DISTRIBUTION WIDTH 13.7 % (11.5-15.0); WHITE BLOOD COUNT (AUTO) 12.6 K/uL (4.3-11.0)
[2024-03-04 07:19] LABS: CALCIUM, SERUM 8.6 mg/dL (8.5-10.1); CARBON DIOXIDE 30 mmol/L (21-32); CHLORIDE 103 mmol/L (98-107); CREATININE 0.5 mg/dL (0.6-1.3); GLUCOSE 111 mg/dL (74-106); PHOSPHORUS 3.3 mg/dL (2.5-4.9); POTASSIUM 4.1 mmol/L (3.5-5.1); SODIUM SERUM 138 mmol/L (136-145); UREA NITROGEN, BLOOD 21 mg/dL (7-18)
[2024-03-04 12:00] VITALS: BP 102/64; TEMP 98.8; O2SAT 94
[2024-03-04 13:10] VITALS: O2SAT 94
[2024-03-04] MEDS: FLUCONAZOLE IN NS 100 MG in PREMIX 1 EA IV SCH (14:17)
[2024-03-04] MEDS: OXYBUTYNIN CHLORIDE 5 MG TABLET PO SCH (16:26)
[2024-03-04 20:00] VITALS: BP 93/60; TEMP 98.8; O2SAT 94
[2024-03-05 01:18] VITALS: O2SAT 94
[2024-03-05 03:00] VITALS: BP 93/60; TEMP 98.8; O2SAT 94
[2024-03-05 04:00] VITALS: BP 109/60; TEMP 98.2; O2SAT 94
[2024-03-05 06:38] LABS: CALCIUM, SERUM 9.1 mg/dL (8.5-10.1); CARBON DIOXIDE 29 mmol/L (21-32); CHLORIDE 97 mmol/L (98-107); CREATININE 0.5 mg/dL (0.6-1.3); GLUCOSE 111 mg/dL (74-106); MAGNESIUM 1.9 mg/dL (1.8-2.4); PHOSPHORUS 3.1 mg/dL (2.5-4.9); POTASSIUM 3.9 mmol/L (3.5-5.1); SODIUM SERUM 130 mmol/L (136-145); UREA NITROGEN, BLOOD 17 mg/dL (7-18)
[2024-03-05 06:41] LABS: BASOPHILS % (AUTO) 0.1 % (0.0-2.0); EOSINOPHILS # (AUTO) 0.4 K/uL (0.0-0.7); EOSINOPHILS % (AUTO) 2.1 % (0.0-6.0); HEMATOCRIT 32 % (39-51); HEMOGLOBIN 11.1 g/dL (13.5-17.5); LYMPHOCYTES % (AUTO) 17.8 % (20.0-44.0); MEAN CORPUSCULAR HEMOGLOBIN 31 PG (26.0-33.0); MEAN CORPUSCULAR HGB CONC 34 g/dl (31.0-36.0); MEAN CORPUSCULAR VOLUME 91 fL (80-96); MONOCYTES # (AUTO) 0.6 K/uL (0.1-1.30); MONOCYTES % (AUTO) 3.8 % (2.0-12.0); NEUTROPHILS # (AUTO) 12.8 K/uL (1.8-8.9); NEUTROPHILS % (AUTO) 76.2 % (43.0-81.0); PLATELET COUNT (AUTO) 339 K/uL (150-450); RED BLOOD CELL COUNT(AUTO) 3.55 MIL/uL (4.5-6.0); RED CELL DISTRIBUTION WIDTH 13.8 % (11.5-15.0); WHITE BLOOD COUNT (AUTO) 16.9 K/uL (4.3-11.0)
[2024-03-05 09:26] VITALS: O2SAT 95
[2024-03-05 12:00] VITALS: BP 109/60; TEMP 98.2; O2SAT 94
[2024-03-05 20:00] VITALS: BP 100/58; TEMP 98.2; O2SAT 95
[2024-03-06] MEDS: IV D5/ 0.9% NACL 1,000 ML IV PRN (01:56)
[2024-03-06 04:00] VITALS: BP 104/62; TEMP 98.5; O2SAT 96
[2024-03-06] MEDS ORDERED: ANESTHESIA TRAY IN PYXIS 1 EA TRAY MC ONE (06:10)
[2024-03-06 06:54] LABS: BASOPHILS % (AUTO) 0.1 % (0.0-2.0); EOSINOPHILS # (AUTO) 0.1 K/uL (0.0-0.7); EOSINOPHILS % (AUTO) 0.5 % (0.0-6.0); HEMATOCRIT 31 % (39-51); HEMOGLOBIN 10.3 g/dL (13.5-17.5); LYMPHOCYTES # (AUTO) 1.9 K/uL (0.8-4.8); LYMPHOCYTES % (AUTO) 10.4 % (20.0-44.0); MEAN CORPUSCULAR HEMOGLOBIN 30 PG (26.0-33.0); MEAN CORPUSCULAR HGB CONC 33 g/dl (31.0-36.0); MEAN CORPUSCULAR VOLUME 91 fL (80-96); MONOCYTES # (AUTO) 0.8 K/uL (0.1-1.30); MONOCYTES % (AUTO) 4.3 % (2.0-12.0); NEUTROPHILS # (AUTO) 15.7 K/uL (1.8-8.9); NEUTROPHILS % (AUTO) 84.7 % (43.0-81.0); PLATELET COUNT (AUTO) 365 K/uL (150-450); RED BLOOD CELL COUNT(AUTO) 3.41 MIL/uL (4.5-6.0); RED CELL DISTRIBUTION WIDTH 13.4 % (11.5-15.0); WHITE BLOOD COUNT (AUTO) 18.5 K/uL (4.3-11.0)
[2024-03-06 07:02] LABS: CALCIUM, SERUM 8.8 mg/dL (8.5-10.1); CARBON DIOXIDE 28 mmol/L (21-32); CHLORIDE 99 mmol/L (98-107); CREATININE 0.6 mg/dL (0.6-1.3); GLUCOSE 94 mg/dL (74-106); MAGNESIUM 1.7 mg/dL (1.8-2.4); PHOSPHORUS 2.4 mg/dL (2.5-4.9); POTASSIUM 3.6 mmol/L (3.5-5.1); SODIUM SERUM 135 mmol/L (136-145); UREA NITROGEN, BLOOD 17 mg/dL (7-18)
[2024-03-06 08:48] VITALS: O2SAT 95
[2024-03-06 10:38] VITALS: O2SAT 94
[2024-03-06] MEDS: MAGNESIUM OXIDE 400 MG TABLET PO ONE (10:45)
[2024-03-06] MEDS: Magnesium 1GM/D5W 100ML PREMIX 100 ML IV SCH (10:48)
[2024-03-06 12:00] VITALS: BP 102/63; TEMP 97.4; O2SAT 95
[2024-03-06 16:00] VITALS: BP 111/65; TEMP 97.3; O2SAT 93
[2024-03-06 16:07] VITALS: O2SAT 95
[2024-03-06] MEDS: K PHOS NEUTRAL 250 MG TABLET PO ONE (16:59)
[2024-03-06] MEDS: NEUTRA PHOS 1 POWD.PACKET NG ONE (17:02)
[2024-03-07] VITALS (9 sets, daily range): BP systolic 92–110; BP diastolic 50–78; TEMP 97.9–99.1; O2SAT 95–100
[2024-03-07 10:59] LABS: BASOPHILS % (AUTO) 0.2 % (0.0-2.0); EOSINOPHILS # (AUTO) 0.1 K/uL (0.0-0.7); EOSINOPHILS % (AUTO) 0.9 % (0.0-6.0); HEMATOCRIT 32 % (39-51); HEMOGLOBIN 10.3 g/dL (13.5-17.5); LYMPHOCYTES # (AUTO) 2.3 K/uL (0.8-4.8); LYMPHOCYTES % (AUTO) 18.1 % (20.0-44.0); MEAN CORPUSCULAR HEMOGLOBIN 30 PG (26.0-33.0); MEAN CORPUSCULAR HGB CONC 33 g/dl (31.0-36.0); MEAN CORPUSCULAR VOLUME 93 fL (80-96); MONOCYTES % (AUTO) 7.7 % (2.0-12.0); NEUTROPHILS # (AUTO) 9.4 K/uL (1.8-8.9); NEUTROPHILS % (AUTO) 73.1 % (43.0-81.0); PLATELET COUNT (AUTO) 371 K/uL (150-450); RED BLOOD CELL COUNT(AUTO) 3.41 MIL/uL (4.5-6.0); RED CELL DISTRIBUTION WIDTH 13.9 % (11.5-15.0); WHITE BLOOD COUNT (AUTO) 12.9 K/uL (4.3-11.0)
[2024-03-07 11:45] LABS: CALCIUM, SERUM 8.7 mg/dL (8.5-10.1); CARBON DIOXIDE 25 mmol/L (21-32); CHLORIDE 105 mmol/L (98-107); CREATININE 0.4 mg/dL (0.6-1.3); GLUCOSE 89 mg/dL (74-106); MAGNESIUM 2.3 mg/dL (1.8-2.4); PHOSPHORUS 2.3 mg/dL (2.5-4.9); POTASSIUM 3.7 mmol/L (3.5-5.1); SODIUM SERUM 140 mmol/L (136-145); UREA NITROGEN, BLOOD 16 mg/dL (7-18)
[2024-03-07 14:44] LABS: ABG BASE EXCESS 3.8 mmol/L (-2.0-2.0); ABG PCO2 33.6 mmHg (35.0-45.0); ABG PH 7.517 (7.340-7.440); ABG TOTAL HEMOGLOBIN 10.7 G/dL (14.0-18.0); AaDO2 181.4 mmHg; COHb 0.3 % (0.5-1.5); O2Hb 96.7 % (94.0-97.0); SITE, ABG Left Radial; VENT MODE, BG NASAL CANNULA
[2024-03-07] MEDS: K PHOS NEUTRAL 250 MG TABLET PO ONE (16:20)
[2024-03-07 16:57] LABS: APPEARANCE,URINE CLOUDY (CLEAR); BILIRUBIN,URINE NEGATIVE (NEGATIVE); BLOOD, URINE 1+ Ery/uL (NEGATIVE); COLOR,URINE YELLOW (YELLOW); KETONES,URINE TRACE mg/dL (NEGATIVE); LEUKOCYTE ESTERASE ,URINE 3+ (NEGATIVE); NITRITE, URINE POSITIVE (NEGATIVE); PH,URINE 8.5 (5.0-8.0); PROTEIN,URINE 2+ mg/dl (NEGATIVE); UGLUCOSE NEGATIVE (NEGATIVE)
[2024-03-07 17:09] LABS: ADD URINE CULTURE YES; BACTERIA,URINE 2+ /HPF (None Seen); SQUAMOUS EPITHELIAL CELL,UR 0-2 /HPF (None Seen); WBC,URINE 21-50 /HPF (0-3)
[2024-03-08] VITALS (9 sets, daily range): BP systolic 102–108; BP diastolic 55–67; TEMP 97.5–98.8; O2SAT 90–100
[2024-03-08] MEDS ORDERED: JEVITY 1.2 CAL 1,000 ML BOTTLE NG PRN (12:57)
[2024-03-08] MEDS: FUROSEMIDE 40 MG/4 ML VIAL IV SCH (13:49)
[2024-03-09] VITALS (9 sets, daily range): BP systolic 101–121; BP diastolic 59–74; TEMP 97.7–98.4; O2SAT 95–100
[2024-03-09] MEDS: ACETAMINOPHEN ES 500 MG TABLET PO PRN (04:39)
[2024-03-09] MEDS: JEVITY 1.2 CAL 1,000 ML BOTTLE NG PRN (06:44)
[2024-03-09 07:17] LABS: BASOPHILS % (AUTO) 0.3 % (0.0-2.0); EOSINOPHILS # (AUTO) 0.1 K/uL (0.0-0.7); EOSINOPHILS % (AUTO) 1.4 % (0.0-6.0); HEMATOCRIT 28 % (39-51); HEMOGLOBIN 9.3 g/dL (13.5-17.5); LYMPHOCYTES # (AUTO) 1.5 K/uL (0.8-4.8); LYMPHOCYTES % (AUTO) 16.2 % (20.0-44.0); MEAN CORPUSCULAR HEMOGLOBIN 30 PG (26.0-33.0); MEAN CORPUSCULAR HGB CONC 33 g/dl (31.0-36.0); MEAN CORPUSCULAR VOLUME 91 fL (80-96); MONOCYTES # (AUTO) 0.7 K/uL (0.1-1.30); MONOCYTES % (AUTO) 7.6 % (2.0-12.0); NEUTROPHILS # (AUTO) 7.1 K/uL (1.8-8.9); NEUTROPHILS % (AUTO) 74.5 % (43.0-81.0); PLATELET COUNT (AUTO) 419 K/uL (150-450); RED BLOOD CELL COUNT(AUTO) 3.11 MIL/uL (4.5-6.0); RED CELL DISTRIBUTION WIDTH 13.6 % (11.5-15.0); WHITE BLOOD COUNT (AUTO) 9.5 K/uL (4.3-11.0)
[2024-03-09 07:47] LABS: CALCIUM, SERUM 8.3 mg/dL (8.5-10.1); CARBON DIOXIDE 30 mmol/L (21-32); CHLORIDE 105 mmol/L (98-107); CREATININE 0.5 mg/dL (0.6-1.3); GLUCOSE 135 mg/dL (74-106); MAGNESIUM 1.9 mg/dL (1.8-2.4); SODIUM SERUM 141 mmol/L (136-145); UREA NITROGEN, BLOOD 11 mg/dL (7-18)
[2024-03-09 07:50] LABS: POTASSIUM 2.7 mmol/L (3.5-5.1)
[2024-03-09] MEDS: POTASSIUM CHLORIDE 20 MEQ TAB.PRT.SR PO ONE (08:41)
[2024-03-09] MEDS: POTASSIUM PHOSPHATE MM 15 MMOL in IV NS 0.9% 250 ML IV SCH (10:06)
[2024-03-09] MEDS: NEUTRA PHOS 1 POWD.PACKET PO ONE (16:25)
[2024-03-10] VITALS (9 sets, daily range): BP systolic 85–116; BP diastolic 52–97; TEMP 98.1–100.9; O2SAT 93–97
[2024-03-10 07:11] LABS: BASOPHILS % (AUTO) 0.2 % (0.0-2.0); EOSINOPHILS # (AUTO) 0.1 K/uL (0.0-0.7); EOSINOPHILS % (AUTO) 0.3 % (0.0-6.0); HEMATOCRIT 31 % (39-51); HEMOGLOBIN 10.4 g/dL (13.5-17.5); LYMPHOCYTES # (AUTO) 2.2 K/uL (0.8-4.8); LYMPHOCYTES % (AUTO) 12.3 % (20.0-44.0); MEAN CORPUSCULAR HEMOGLOBIN 30 PG (26.0-33.0); MEAN CORPUSCULAR HGB CONC 33 g/dl (31.0-36.0); MEAN CORPUSCULAR VOLUME 91 fL (80-96); MONOCYTES % (AUTO) 5.5 % (2.0-12.0); NEUTROPHILS # (AUTO) 14.6 K/uL (1.8-8.9); NEUTROPHILS % (AUTO) 81.7 % (43.0-81.0); PLATELET COUNT (AUTO) 472 K/uL (150-450); RED BLOOD CELL COUNT(AUTO) 3.42 MIL/uL (4.5-6.0); RED CELL DISTRIBUTION WIDTH 13.7 % (11.5-15.0); WHITE BLOOD COUNT (AUTO) 17.8 K/uL (4.3-11.0)
[2024-03-10 07:34] LABS: CALCIUM, SERUM 8.6 mg/dL (8.5-10.1); CARBON DIOXIDE 37 mmol/L (21-32); CHLORIDE 104 mmol/L (98-107); CREATININE 0.6 mg/dL (0.6-1.3); GLUCOSE 149 mg/dL (74-106); PHOSPHORUS 2.8 mg/dL (2.5-4.9); POTASSIUM 3.9 mmol/L (3.5-5.1); SODIUM SERUM 141 mmol/L (136-145); UREA NITROGEN, BLOOD 16 mg/dL (7-18)
[2024-03-10] MEDS: IV NS 0.9% 1,000 ML IV ONE (11:28)
[2024-03-11] VITALS (9 sets, daily range): BP systolic 95–115; BP diastolic 56–82; TEMP 97.9–98.7; O2SAT 92–96
[2024-03-11 06:21] LABS: BASOPHILS % (AUTO) 0.2 % (0.0-2.0); EOSINOPHILS # (AUTO) 0.1 K/uL (0.0-0.7); EOSINOPHILS % (AUTO) 0.6 % (0.0-6.0); HEMATOCRIT 29 % (39-51); HEMOGLOBIN 9.5 g/dL (13.5-17.5); LYMPHOCYTES # (AUTO) 2.4 K/uL (0.8-4.8); LYMPHOCYTES % (AUTO) 14.8 % (20.0-44.0); MEAN CORPUSCULAR HEMOGLOBIN 30 PG (26.0-33.0); MEAN CORPUSCULAR HGB CONC 32 g/dl (31.0-36.0); MEAN CORPUSCULAR VOLUME 92 fL (80-96); MONOCYTES # (AUTO) 0.8 K/uL (0.1-1.30); MONOCYTES % (AUTO) 4.9 % (2.0-12.0); NEUTROPHILS # (AUTO) 12.9 K/uL (1.8-8.9); NEUTROPHILS % (AUTO) 79.5 % (43.0-81.0); PLATELET COUNT (AUTO) 452 K/uL (150-450); RED BLOOD CELL COUNT(AUTO) 3.21 MIL/uL (4.5-6.0); RED CELL DISTRIBUTION WIDTH 13.8 % (11.5-15.0); WHITE BLOOD COUNT (AUTO) 16.2 K/uL (4.3-11.0)
[2024-03-11 06:41] LABS: CALCIUM, SERUM 8.7 mg/dL (8.5-10.1); CARBON DIOXIDE 29 mmol/L (21-32); CHLORIDE 106 mmol/L (98-107); CREATININE 0.5 mg/dL (0.6-1.3); GLUCOSE 134 mg/dL (74-106); MAGNESIUM 1.9 mg/dL (1.8-2.4); PHOSPHORUS 2.4 mg/dL (2.5-4.9); POTASSIUM 4.4 mmol/L (3.5-5.1); SODIUM SERUM 141 mmol/L (136-145); UREA NITROGEN, BLOOD 19 mg/dL (7-18)
[2024-03-11] MEDS: FLUCONAZOLE (100 MG) 100 MG TABLET PO SCH (08:26)
[2024-03-11] MEDS: NEUTRA PHOS 1 POWD.PACKET GT ONE (16:04)
[2024-03-11] MEDS ORDERED: VANCOMYCIN 1 GM /D5W 250 ML PB IV ONE (21:54)
[2024-03-11] MEDS: VANCOMYCIN 1 GM in IV NS 0.9% 250 ML IV ONE (21:56)
[2024-03-12] VITALS (10 sets, daily range): BP systolic 85–96; BP diastolic 54–65; TEMP 97.7–98.5; O2SAT 92–99
[2024-03-12 06:35] LABS: BASOPHILS # (AUTO) 0.1 K/uL (0.0-0.2); BASOPHILS % (AUTO) 0.4 % (0.0-2.0); EOSINOPHILS # (AUTO) 0.2 K/uL (0.0-0.7); EOSINOPHILS % (AUTO) 1.2 % (0.0-6.0); HEMATOCRIT 28 % (39-51); HEMOGLOBIN 9.3 g/dL (13.5-17.5); LYMPHOCYTES # (AUTO) 2.7 K/uL (0.8-4.8); MEAN CORPUSCULAR HEMOGLOBIN 31 PG (26.0-33.0); MEAN CORPUSCULAR HGB CONC 33 g/dl (31.0-36.0); MEAN CORPUSCULAR VOLUME 92 fL (80-96); MONOCYTES # (AUTO) 0.8 K/uL (0.1-1.30); MONOCYTES % (AUTO) 6.2 % (2.0-12.0); NEUTROPHILS # (AUTO) 9.2 K/uL (1.8-8.9); NEUTROPHILS % (AUTO) 71.2 % (43.0-81.0); PLATELET COUNT (AUTO) 393 K/uL (150-450); RED BLOOD CELL COUNT(AUTO) 3.06 MIL/uL (4.5-6.0); RED CELL DISTRIBUTION WIDTH 13.7 % (11.5-15.0); WHITE BLOOD COUNT (AUTO) 12.9 K/uL (4.3-11.0)
[2024-03-12 06:52] LABS: CARBON DIOXIDE 33 mmol/L (21-32); CHLORIDE 103 mmol/L (98-107); POTASSIUM 3.8 mmol/L (3.5-5.1); SODIUM SERUM 141 mmol/L (136-145)
[2024-03-12] MEDS ORDERED: ROCURONIUM BROMIDE 50 MG/5 ML ONE (06:54)
[2024-03-12] MEDS ORDERED: FENTANYL PF 250MCG/5ML AMPUL ONE (06:54)
[2024-03-12 07:09] LABS: CALCIUM, SERUM 9.1 mg/dL (8.5-10.1); CREATININE 0.5 mg/dL (0.6-1.3); GLUCOSE 108 mg/dL (74-106); MAGNESIUM 2.3 mg/dL (1.8-2.4); PHOSPHORUS 3.3 mg/dL (2.5-4.9); UREA NITROGEN, BLOOD 25 mg/dL (7-18)
[2024-03-12] MEDS: VANCOMYCIN 750 MG in IV D5W 250 ML IV SCH (09:07)
[2024-03-12] MEDS: POLYETHYLENE GLYCOL 3350 17 GM POWD.PACK PO SCH (22:45)
[2024-03-13] VITALS: BP 102/60; TEMP 98; O2SAT 98
[2024-03-13 04:00] VITALS: BP 96/57; TEMP 98.5; O2SAT 95
[2024-03-13 07:27] LABS: BASOPHILS # (AUTO) 0.2 K/uL (0.0-0.2); BASOPHILS % (AUTO) 1.2 % (0.0-2.0); CARBON DIOXIDE 32 mmol/L (21-32); CHLORIDE 100 mmol/L (98-107); CREATININE 0.5 mg/dL (0.6-1.3); EOSINOPHILS # (AUTO) 0.5 K/uL (0.0-0.7); EOSINOPHILS % (AUTO) 3.3 % (0.0-6.0); GLUCOSE 90 mg/dL (74-106); HEMATOCRIT 26 % (39-51); HEMOGLOBIN 8.5 g/dL (13.5-17.5); LYMPHOCYTES # (AUTO) 3.6 K/uL (0.8-4.8); LYMPHOCYTES % (AUTO) 24.7 % (20.0-44.0); MAGNESIUM 2.1 mg/dL (1.8-2.4); MEAN CORPUSCULAR HEMOGLOBIN 30 PG (26.0-33.0); MEAN CORPUSCULAR HGB CONC 33 g/dl (31.0-36.0); MEAN CORPUSCULAR VOLUME 92 fL (80-96); MONOCYTES # (AUTO) 0.9 K/uL (0.1-1.30); MONOCYTES % (AUTO) 6.1 % (2.0-12.0); NEUTROPHILS # (AUTO) 9.4 K/uL (1.8-8.9); NEUTROPHILS % (AUTO) 64.7 % (43.0-81.0); PHOSPHORUS 2.8 mg/dL (2.5-4.9); PLATELET COUNT (AUTO) 424 K/uL (150-450); POTASSIUM 4.2 mmol/L (3.5-5.1); RED BLOOD CELL COUNT(AUTO) 2.81 MIL/uL (4.5-6.0); SODIUM SERUM 135 mmol/L (136-145); UREA NITROGEN, BLOOD 22 mg/dL (7-18); WHITE BLOOD COUNT (AUTO) 14.6 K/uL (4.3-11.0)
[2024-03-13 08:00] VITALS: BP 96/58; TEMP 99; O2SAT 95
[2024-03-13 12:00] VITALS: BP 88/61; TEMP 98.1; O2SAT 97
[2024-03-13] MEDS: IV NS 0.9% 1,000 ML IV ONE (14:40)
[2024-03-13 16:00] VITALS: BP 101/61; TEMP 98.8; O2SAT 98
[2024-03-13 20:00] VITALS: BP 100/69; TEMP 99.7; O2SAT 95
[2024-03-13] MEDS ORDERED: VANCOMYCIN 750 MG in IV D5W 250 ML IV SCH (21:00)
[2024-03-14] VITALS: BP 107/68; TEMP 97.9; O2SAT 97
[2024-03-14 04:00] VITALS: BP 99/62; TEMP 98.2; O2SAT 99
[2024-03-14 06:39] LABS: BASOPHILS # (AUTO) 0.1 K/uL (0.0-0.2); BASOPHILS % (AUTO) 0.5 % (0.0-2.0); EOSINOPHILS # (AUTO) 0.3 K/uL (0.0-0.7); EOSINOPHILS % (AUTO) 3.2 % (0.0-6.0); HEMATOCRIT 31 % (39-51); HEMOGLOBIN 10.1 g/dL (13.5-17.5); LYMPHOCYTES % (AUTO) 19.2 % (20.0-44.0); MEAN CORPUSCULAR HEMOGLOBIN 30 PG (26.0-33.0); MEAN CORPUSCULAR HGB CONC 33 g/dl (31.0-36.0); MEAN CORPUSCULAR VOLUME 91 fL (80-96); MONOCYTES # (AUTO) 0.9 K/uL (0.1-1.30); MONOCYTES % (AUTO) 8.8 % (2.0-12.0); NEUTROPHILS % (AUTO) 68.3 % (43.0-81.0); PLATELET COUNT (AUTO) 426 K/uL (150-450); RED BLOOD CELL COUNT(AUTO) 3.41 MIL/uL (4.5-6.0); RED CELL DISTRIBUTION WIDTH 13.7 % (11.5-15.0); WHITE BLOOD COUNT (AUTO) 10.2 K/uL (4.3-11.0)
[2024-03-14 06:55] LABS: CALCIUM, SERUM 9.6 mg/dL (8.5-10.1); CARBON DIOXIDE 37 mmol/L (21-32); CHLORIDE 100 mmol/L (98-107); CREATININE 0.5 mg/dL (0.6-1.3); GLUCOSE 101 mg/dL (74-106); MAGNESIUM 2.2 mg/dL (1.8-2.4); PHOSPHORUS 3.2 mg/dL (2.5-4.9); POTASSIUM 4.9 mmol/L (3.5-5.1); SODIUM SERUM 136 mmol/L (136-145); UREA NITROGEN, BLOOD 23 mg/dL (7-18)
[2024-03-14 08:00] VITALS: BP 111/68; TEMP 98.2; O2SAT 95
[2024-03-14] MEDS ORDERED: FLUC100T8 PO (08:54)
[2024-03-14 12:00] VITALS: BP 103/68; TEMP 98.3; O2SAT 94
[2024-03-14 16:00] VITALS: BP 98/54; TEMP 99; O2SAT 94
[2024-03-14 20:00] VITALS: BP 97/54; TEMP 98.6; O2SAT 96
[2024-03-15] VITALS (8 sets, daily range): BP systolic 92–107; BP diastolic 48–81; TEMP 97.7–98.5; O2SAT 91–100
[2024-03-15 08:07] LABS: CALCIUM, SERUM 9.3 mg/dL (8.5-10.1); CARBON DIOXIDE 31 mmol/L (21-32); CHLORIDE 100 mmol/L (98-107); CREATININE 0.5 mg/dL (0.6-1.3); GLUCOSE 97 mg/dL (74-106); POTASSIUM 4.8 mmol/L (3.5-5.1); SODIUM SERUM 134 mmol/L (136-145); UREA NITROGEN, BLOOD 26 mg/dL (7-18)
[2024-03-15] MEDS: THERAHONEY GEL 1.5 OZ TUBE TP SCH ×2 (08:56→11:36)
[2024-03-15 10:01] LABS: BASOPHILS % (AUTO) 0.3 % (0.0-2.0); EOSINOPHILS # (AUTO) 0.3 K/uL (0.0-0.7); EOSINOPHILS % (AUTO) 2.3 % (0.0-6.0); HEMATOCRIT 32 % (39-51); HEMOGLOBIN 10.3 g/dL (13.5-17.5); LYMPHOCYTES # (AUTO) 2.9 K/uL (0.8-4.8); LYMPHOCYTES % (AUTO) 22.9 % (20.0-44.0); MEAN CORPUSCULAR HEMOGLOBIN 29 PG (26.0-33.0); MEAN CORPUSCULAR HGB CONC 32 g/dl (31.0-36.0); MEAN CORPUSCULAR VOLUME 91 fL (80-96); MONOCYTES % (AUTO) 7.6 % (2.0-12.0); NEUTROPHILS # (AUTO) 8.5 K/uL (1.8-8.9); NEUTROPHILS % (AUTO) 66.9 % (43.0-81.0); PLATELET COUNT (AUTO) 389 K/uL (150-450); RED BLOOD CELL COUNT(AUTO) 3.52 MIL/uL (4.5-6.0); RED CELL DISTRIBUTION WIDTH 14.2 % (11.5-15.0); WHITE BLOOD COUNT (AUTO) 12.7 K/uL (4.3-11.0)
[2024-03-16] VITALS (7 sets, daily range): BP systolic 92–117; BP diastolic 60–88; TEMP 97.7–98.8; O2SAT 96–100
[2024-03-16 06:38] LABS: BASOPHILS % (AUTO) 0.4 % (0.0-2.0); EOSINOPHILS # (AUTO) 0.2 K/uL (0.0-0.7); EOSINOPHILS % (AUTO) 1.6 % (0.0-6.0); HEMATOCRIT 35 % (39-51); LYMPHOCYTES % (AUTO) 16.9 % (20.0-44.0); MEAN CORPUSCULAR HEMOGLOBIN 29 PG (26.0-33.0); MEAN CORPUSCULAR HGB CONC 32 g/dl (31.0-36.0); MEAN CORPUSCULAR VOLUME 92 fL (80-96); MONOCYTES # (AUTO) 1.1 K/uL (0.1-1.30); MONOCYTES % (AUTO) 9.2 % (2.0-12.0); NEUTROPHILS # (AUTO) 8.5 K/uL (1.8-8.9); NEUTROPHILS % (AUTO) 71.9 % (43.0-81.0); PLATELET COUNT (AUTO) 387 K/uL (150-450); RED CELL DISTRIBUTION WIDTH 14.3 % (11.5-15.0); WHITE BLOOD COUNT (AUTO) 11.8 K/uL (4.3-11.0)
[2024-03-16 07:03] LABS: CALCIUM, SERUM 9.6 mg/dL (8.5-10.1); CARBON DIOXIDE 26 mmol/L (21-32); CHLORIDE 96 mmol/L (98-107); CREATININE 0.5 mg/dL (0.6-1.3); GLUCOSE 126 mg/dL (74-106); MAGNESIUM 2.2 mg/dL (1.8-2.4); PHOSPHORUS 3.6 mg/dL (2.5-4.9); POTASSIUM 4.7 mmol/L (3.5-5.1); SODIUM SERUM 131 mmol/L (136-145); UREA NITROGEN, BLOOD 27 mg/dL (7-18)
== END 2024-03-16 20:39 | disposition short-term general hospital (02) | DRG 698 ==
LOC: ER 13:02 → MEDSG1 14:56 → TELE1 03-05 20:44
PROVIDERS: ADMIT Student in an Organized Health Care Education/Training Program; ATTEND Student in an Organized Health Care Education/Training Program
PROC: 0DH63UZ Insertion of Feeding Device into Stomach, Percutaneous Approach (ICD-10-PCS; principal; 2024-03-08)
PROC: 0T2BX0Z Change Drainage Device in Bladder, External Approach (ICD-10-PCS; 2024-03-12)
DX: T83.038A Leakage of other urinary catheter, initial encounter (principal); E43 Unspecified severe protein-calorie malnutrition; J69.0 Pneumonitis due to inhalation of food and vomit; G92.8 Other toxic encephalopathy; J96.01 Acute respiratory failure with hypoxia; J15.69 Pneumonia due to other Gram-negative bacteria; N39.0 Urinary tract infection, site not specified; I50.22 Chronic systolic (congestive) heart failure; R64 Cachexia; D68.59 Other primary thrombophilia; N13.8 Other obstructive and reflux uropathy; N17.9 Acute kidney failure, unspecified; Z16.24 Resistance to multiple antibiotics; E87.0 Hyperosmolality and hypernatremia; E87.1 Hypo-osmolality and hyponatremia; R62.7 Adult failure to thrive; I11.0 Hypertensive heart disease with heart failure; I25.10 Atherosclerotic heart disease of native coronary artery without angina pectoris; B96.20 Unspecified Escherichia coli [E. coli] as the cause of diseases classified elsewhere; D63.8 Anemia in other chronic diseases classified elsewhere; E86.0 Dehydration; E87.6 Hypokalemia; E88.09 Other disorders of plasma-protein metabolism, not elsewhere classified; F02.80 Dementia in other diseases classified elsewhere, unspecified severity, without behavioral disturbance, psychotic disturbance, mood disturbance, and anxiety; G30.9 Alzheimer's disease, unspecified; I25.5 Ischemic cardiomyopathy; I35.0 Nonrheumatic aortic (valve) stenosis; I65.23 Occlusion and stenosis of bilateral carotid arteries; I66.02 Occlusion and stenosis of left middle cerebral artery; K29.70 Gastritis, unspecified, without bleeding; K59.00 Constipation, unspecified; L97.519 Non-pressure chronic ulcer of other part of right foot with unspecified severity; M89.8X9 Other specified disorders of bone, unspecified site; N35.919 Unspecified urethral stricture, male, unspecified site; N40.1 Benign prostatic hyperplasia with lower urinary tract symptoms; R13.10 Dysphagia, unspecified; R47.02 Dysphasia; Y95 Nosocomial condition; Z74.09 Other reduced mobility; Z78.1 Physical restraint status; Z79.82 Long term (current) use of aspirin; Z95.1 Presence of aortocoronary bypass graft; Z86.73 Personal history of transient ischemic attack (TIA), and cerebral infarction without residual deficits; Z96.643 Presence of artificial hip joint, bilateral; Y92.129 Unspecified place in nursing home as the place of occurrence of the external cause; Y73.8 Miscellaneous gastroenterology and urology devices associated with adverse incidents, not elsewhere classified
CPT/HCPCS: 31720; 36415; 36600; 43246; 70450-TC; 71045-TC; 71250-TC; 74018; 74230-TC; 80048-TC; 80061-TC; 80076-TC; 80202-TC; 81001; 82607-TC; 82803-TC; 82962-TC; 83605-TC; 83735-TC; 83921; 84100-TC; 84443-TC; 84484-TC; 85025-TC; 85730-TC; 87040-TC; 87086-TC; 92526; 92611-TC; 93880-TC; 94760-TC; 94762-TC; 94799-TC; A4216; A4217; A4223; A6253; G0378; J0696; J1450; J1650; J1940; J2185; J2704; J3010; J3370; J3371; J3475; J3490; J7030; J7042; J7050; J7060; J7070